=== PATIENT | female | born 1945 | race Caucasian/White ===

== ENCOUNTER → 2023-05-06 13:14 | Outpatient (REF) | payer OTHER, SELFPAY | LOC: WDC 13:14 | PROVIDERS: ATTENDING PHYSICIAN Internal Medicine Hematology & Oncology; FAMILY PHYSICIAN Emergency Medicine | DX: Z12.31 Encounter for screening mammogram for malignant neoplasm of breast (principal) | CPT/HCPCS: 77063; 77067 ==

== ENCOUNTER 2023-06-29 12:31 | Emergency (ER) | payer OTHER, SELFPAY ==
[2023-06-29 12:43] VITALS: BP 157/92
--- NOTE | 2023-06-29 13:54 | ED.GENMED ---
History of Present Illness
General
Chief Complaint: Chest Pain
Time Seen by Provider: 06/29/23 13:44
Travel History
Have you had any contact with someone who has COVID-19?: No
Do you have any symptoms of coronavirus? Fever > 100 degrees, chills, cough, shortness of breath, sore throat, loss of taste or smell, muscle aches, or headache?: No
History of Present Illness
History of Present Illness:
Patient is a 77-year-old female with past medical history of multiple sclerosis, vertigo, COPD, history of prior tobacco use, atrial fibrillation on Eliquis, history of DVT, hypertension, osteopenia, DDD, hearing impairment, hyperlipidemia, GERD,
diverticulosis, history of breast and skin cancer, and history of constipation, here today for evaluation of chest pain that began approximately 3 days ago associated with frequent burping. Pain is described as a burning sensation. She also
endorses nausea. No fevers. No cough. No vomiting. No abdominal pain or diarrhea. No lower extremity pain or swelling. Patient was seen by her primary care provider and directed to the emergency department for further testing and evaluation.
Past History
Past History
ED Past Medical History: Arrthythmia (Atrial fibrillation), Cancer (Breast), COPD, GERD (PUD, gastritis), HTN, Hypercholesterolemia and Other (MS, CKD)
ED Past Surgical History: Orthopedic and Other
Patient has exhibited threatening behavior?: No
Social History
Tobacco: Non-smoker (Breast cancer diagnosed in February 2015 treated with lumpectomy and radiation)
Alcohol: None
Drug: None
Personal: Single
Living: alone
Employment: Employed (lawn care technician)
Family History
Family History: Other (n/c)
Review of Systems
Review of Systems
All Other Systems: ROS reviewed and negative except as documented in HPI and ROS
Phy Exam
Physical Exam
Physical Exam:
GENERAL: Alert , in no apparent distress
EYE: pupils equal and reactive
NECK: Supple, no significant adenopathy.
ENT: o/p clr, mmm.
CARDIAC: Regular rate and rhythm .
LUNGS: Clear breath sounds bilaterally, no acute respiratory distress, no wheezes/rales/rhonchi
ABDOMEN: Soft, without focal tenderness, no r/g, no cvat
NEUROLOGICAL: Alert and oriented, no focal neuro deficits
SKIN: Warm and dry, skin intact.
MUSCULOSKELETAL: No edema, well perfused.
PSYCH: Normal and appropriate interaction.
Course
Orders/Labs/Results
Orders:
Orders
06/29/23 12:33
Electrocardiogram (*1) Urgent
Reason for Study: Chest Pain
EKG- Treatment ONCE
06/29/23 13:52
Famotidine [Pepcid] 20 mg PO NOW STA
Mag Hydrox/Al Hydrox/Simeth [Maalox] 30 ml PO NOW STA
CR Chest - 2 Views Urgent
Comment:
Reason For Exam: chest pain
06/29/23 14:06
Complete Blood Count/With Diff Urgent
Comprehensive Metabolic Panel Urgent
Troponin I Urgent
06/29/23 17:08
ECG [Electrocardiogram (*1)] Urgent
Reason for Study: Chest Pain
06/29/23 17:09
EKG- Treatment ONCE
06/29/23 17:10
Troponin I Urgent
Abnormal Lab Results
06/29/23
14:06
WBC 12.3 H 10^3/uL
(4.8-10.8)
RDW 15.8 H %
(11.5-14.5)
Absolute Neuts (auto) 8.1 H 10^3/uL
(1.4-6.5)
Absolute Monos (auto) 1.2 H 10^3/uL
(0.1-0.6)
Monocytes % 9.7 H %
(1.7-9.3)
BUN 26 H mg/dl
(7-17)
Glucose 124 H mg/dl
(70-99)
Calcium 12.4 H mg/dl
(8.4-10.2)
Albumin 5.1 H g/dl
(3.5-5.0)
06/29/23 14:06
06/29/23 14:06
Vital Signs
Pulse: 113
Initial and Last Documented VS:
Initial Vital Signs
Temp Pulse Resp BP Pulse Ox
98.2 F 116 22 157/92 97
06/29/23 12:43 06/29/23 12:43 06/29/23 12:43 06/29/23 12:43 06/29/23 12:43
Last Documented Vital Signs
Temp Pulse Resp BP Pulse Ox
98.2 F 113 20 130/76 97
06/29/23 12:43 06/29/23 17:04 06/29/23 16:00 06/29/23 16:00 06/29/23 12:43
MDM/Problems Addressed
Differential Diagnosis Includes:
Patient is a 77-year-old female with past medical history of multiple sclerosis, vertigo, COPD, history of prior tobacco use, atrial fibrillation on Eliquis, history of DVT, hypertension, osteopenia, DDD, hearing impairment, hyperlipidemia, GERD,
diverticulosis, history of breast and skin cancer, and history of constipation, here today for evaluation of chest pain. Overall, patient appears well. She is mildly hypertensive. Physical examination described above. Will place on cardiac
monitor. Will obtain screening labs, EKG, and chest x-ray.
06/29/2023 17:00: Screening labs reveal mild leukocytosis with a WBC count of 12.3. BUN 26 with a normal creatinine of 1.0. Glucose 124. Calcium 12.4 (increased from January 2023 of 9.2). Troponin negative. EKG reveals sinus tachycardia with
occasional PVCs. There appears to be slight ST depression noted laterally in V4-V6 without ST elevation. At this time, discussed plan with patient. Recommended admission to the hospital given reported chest pain and elevated heart score. Patient
would prefer to be discharged and follow-up with her chainstitch pants outseamer as an outpatient. We discussed risks in full detail. We will obtain a second troponin at this time and closely monitor and reassess. The patient is still mildly cardiac here to the
low 110s. Will repeat heart rate.
ED Attending Note
-
Portions of this chart may have been created with voice recognition software.� Occasional wrong word or��sound alike� substitutions may have occurred due to the inherent limitations of voice recognition software.
Discharge Plan
Departure
Patient Disposition: Home (Routine Discharge)
Date of Disposition: 06/29/23
Time of Disposition: 17:52
Patient with high blood pressure during this ER visit?: Yes
Condition: Fair
Covid-19: Not Applicable
Discharge Problem:
Chest pain, Hypercalcemia
Instructions: Chest Pain DCA Follow Up
Prescriptions:
No Action
meclizine 25 MG tablet
25 mg PO TIDPRN PRN (Reason: vertigo)
albuterol sulfate 1 PUFF HFA aerosol inhaler
2 puff inhalation R Q4HPRN PRN (Reason: sob/wheezing)
amantadine HCl 100 MG capsule
100 mg PO BID
atorvastatin 10 MG tablet
10 mg PO DAILY Qty: 30 0RF
Rx Instructions:
NEW MED
metoprolol succinate 25 MG tablet extended release 24 hr
25 mg PO BID Qty: 30 0RF
lisinopril 20 mg Tablet
20 mg PO DAILY
amlodipine 2.5 mg Tablet
2.5 mg PO DAILY
tizanidine 2 MG tablet
4 mg PO TID
Fish Oil
1 dose PO DAILY
nitrofurantoin monohyd/m-cryst [Macrobid] 100 mg capsule
100 mg PO BID Qty: 10 0RF
tramadol 50 mg tablet
50 mg PO Q8H PRN (Reason: Pain) Qty: 20 0RF
Eliquis 5 MG tablet
5 mg PO BID
Rx Instructions:
NEW DOSE
omeprazole 40 MG capsule,delayed release(DR/EC)
40 mg PO DAILY Qty: 30 0RF
Referrals:
Nanette He MD [Family Provider] - Follow up in 2-3 days
Reji Palmer MD [Active] - Follow up in 2-3 days
Activity Restrictions/Additional Instructions:
You were seen today for evaluation of chest pain.
Your workup reveals an elevated white blood cell count to 12.3, elevated BUN to 26, elevated glucose to 124, and elevated calcium to 12.4.
We recommended admission to the hospital but you declined.
Please contact your family doctor and chainstitch pants outseamer and be evaluated within the next 2 to 3 days for close reevaluation.
Return for any new, or concerning symptoms.
We recommend repeating your blood work as an outpatient with your family doctor.
Interventions
Interventions:
*Risk Screen - Suicide Last Done: 06/29/23 12:43
*General Assessment Last Done: 06/29/23 12:43
*Neglect/Abuse Screening Last Done: 06/29/23 12:43
ED- Fall Risk Assessment Last Done: 06/29/23 14:59
ED- Cardiac Assessment Last Done: 06/29/23 14:59
Discharge Date and Time
Print Language: [id number]
[2023-06-29 14:13] LABS: % Basophils 0.7 % (0-2); % Eosinophils 1.1 % (0-6); % Immature Granulocytes 0.2 % (0-0.5); % Monocytes 9.7 % (1.7-9.3); % Neutrophils 65.3 % (42.2-75.2); Absolute Basophils 0.1 10^3/uL (0-0.2); Absolute Eosinophils 0.1 10^3/uL (0-0.7); Absolute Lymphocytes 2.8 10^3/uL (1.2-3.4); Absolute Monocytes 1.2 10^3/uL (0.1-0.6); Absolute Neutrophils 8.1 10^3/uL (1.4-6.5); Hematocrit 41.7 % (37.0-47.0); Hemoglobin 13.8 g/dL (12.0-16.0); Mean Corp Hgb Conc. 33.1 g/dL (33.0-37.0); Mean Corpuscular Volume 84.6 fL (81.0-99.0); Mean Platelet Volume 9.8 fL (7.4-10.4); Nucleated Red Blood Cells % 0 %; Platelet Count 342 10^3/uL (130-400); Red Blood Cell Count 4.93 10^6/uL (4.20-5.40); Red Cell Dist. Width 15.8 % (11.5-14.5); White Blood Cell Count 12.3 10^3/uL (4.8-10.8)
[2023-06-29] MEDS: MAALOX 30 ML PO (14:21)
[2023-06-29] MEDS: PEPCID 20 MG PO (14:21)
[2023-06-29 14:25] LABS: ALT (SGPT) 25 U/L (0-35); AST (SGOT) 23 U/L (14-36); Albumin 5.1 g/dl (3.5-5.0); Alkaline Phosphatase 109 U/L (38-126); Blood Urea Nitrogen 26 mg/dl (7-17); Calcium 12.4 mg/dl (8.4-10.2); Carbon Dioxide 23 mmol/L (22-30); Chloride 105 mmol/L (98-107); Glucose 124 mg/dl (70-99); Potassium 4.5 mmol/L (3.5-5.1); Sodium 138 mmol/L (135-145); Total Bilirubin 0.7 mg/dl (0.2-1.3); eGFR 57.66
[2023-06-29 14:36] LABS: Troponin I < 0.012 ng/ml
[2023-06-29 15:06] VITALS: BP 145/84
[2023-06-29 16:00] VITALS: BP 130/76
[2023-06-29 17:00] VITALS: BP 137/79
[2023-06-29 17:46] LABS: Troponin I < 0.012 ng/ml
== END 2023-06-29 18:29 | disposition home or self-care (01) ==
LOC: EMR 12:31
PROVIDERS: Emergency Medicine; Physician Assistant; EMERGENCY PHYSICIAN Student in an Organized Health Care Education/Training Program; FAMILY PHYSICIAN Emergency Medicine
DX: R07.89 Other chest pain (principal); E83.52 Hypercalcemia; G35 Multiple sclerosis; J44.9 Chronic obstructive pulmonary disease, unspecified; I48.91 Unspecified atrial fibrillation; K21.9 Gastro-esophageal reflux disease without esophagitis; I10 Essential (primary) hypertension; E78.00 Pure hypercholesterolemia, unspecified; I12.9 Hypertensive chronic kidney disease with stage 1 through stage 4 chronic kidney disease, or unspecified chronic kidney disease; N18.9 Chronic kidney disease, unspecified; Z87.891 Personal history of nicotine dependence; Z87.11 Personal history of peptic ulcer disease
CPT/HCPCS: 99283; 71046; 80053; 84484; 85025; 93005

== ENCOUNTER 2023-07-01 16:46 | Inpatient (IN) | payer OTHER, SELFPAY ==
[2023-07-01] VITALS (24 sets, daily range): BP systolic 51–117; BP diastolic 26–92; BMI 29.4
[2023-07-01] MEDS: NSS 1000 IV ×3 (12:47→21:55)
--- NOTE | 2023-07-01 13:10 | EDRN ---
Received patient on stretcher. Patient was sent from her Instructional Technology Teacher office for low blood. Patient stated that she has been feeling generally weak since Wednesday. Patient stated that she was here Wednesday with 'heartburn' and weakness. Patient stated
that she has had a 20 lbs unintentional weight loss. Stated that she does feel dizzy at times. Denies any chest pain or 'heartburn'.
--- NOTE | 2023-07-01 13:13 | ED.GENMED ---
History of Present Illness
General
Chief Complaint: Blood Pressure Problem
Source: patient
Exam Limitations: none
Time Seen by Provider: 07/01/23 12:46
Nursing documentation reviewed up to this point in time: agreed with
Travel History
Have you had any contact with someone who has COVID-19?: No
Do you have any symptoms of coronavirus? Fever > 100 degrees, chills, cough, shortness of breath, sore throat, loss of taste or smell, muscle aches, or headache?: No
History of Present Illness
History of Present Illness:
Patient is a 77-year-old female with past medical history of multiple sclerosis and COPD who was sent directly from cardiology outpatient appointment today for low blood pressure. Patient complains of generalized weakness and occasional
lightheadedness but denies fever, chills, and increased cough. Patient was recently evaluated in the emergency department for frequent heartburn. Patient reports she has had heartburn on a daily basis, lasting for hours, over the last 4 to 5 days.
However, she denies sweating, nausea and shortness of breath. In addition, patient reports a 20 pound weight loss over the last 2 months that is unintentional. She denies abnormal bowel movements as well as black and bloody stool. Patient has no
other complaints. Patient reports her blood pressure generally runs ' normal'. Patient reports that her medications were recently changed but is unable to tell me what changes were made. On medication list, patient takes 2.5 mg of amlodipine, 20
mg of lisinopril, and 25 mg of metoprolol twice a day. Patient denies vomiting and diarrhea. She reports she eats and drinks but not as well as she should.
Past History
Past History
ED Past Medical History: Arrthythmia (Atrial fibrillation), Cancer (Breast, 'mass found near ureter'), COPD, GERD (PUD, gastritis), HTN, Hypercholesterolemia and Other (MS, CKD)
ED Past Surgical History: Orthopedic and Other
Patient has exhibited threatening behavior?: No
Social History
Tobacco: Former smoker (Breast cancer diagnosed in February 2015 treated with lumpectomy and radiation)
Alcohol: None
Drug: None
Personal: Single
Living: alone
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
Family History
Family History: Other (n/c)
Review of Systems
Review of Systems
Allergies reviewed?: Yes
All Other Systems: ROS reviewed and negative except as documented in HPI and ROS
Constitutional: Reports weight loss and fatigue
EENT: Reports no symptoms
Respiratory: Reports no symptoms
Cardiac: Reports chest pain ('Heartburn')
ABD/GI: Reports no symptoms
: Reports no symptoms
Musculoskeletal: Reports no symptoms
Skin: Reports no symptoms
Neurological: Reports no symptoms
Endocrine: Reports no symptoms
Hematologic/Lymphatic: Reports no symptoms
Psychiatric: Reports no symptoms
Phy Exam
Physical Exam
Physical Exam:
Physical Exam
General: no apparent distress, not acutely ill. Fully alert, awake and conversational
Neck: supple. no meningeal signs. normal psoterior pharynx
Heart: s1/s2 regular rate and rhythm, no murmur. equal radial pulses.
Lungs: no acute respiratory distress. clear bilaterally
Abdomen: normal bowel sounds. not tender. no CVAT
Neuro: alert and oriented. no focal neurological deficits
Skin: no rash
Psychiatric: well kept. interactive and cooperative
Extremities: no edema. no calf tenderness. negative homans. good distal pulses
Course
Orders/Labs/Results
Orders:
Orders
07/01/23 12:18
Electrocardiogram (*1) Urgent
Reason for Study: Abdominal Pain
EKG- Treatment ONCE
07/01/23 12:46
0.9% Sodium Chloride 1000 ml [Nss] 1,000 ml IV BOLUS
07/01/23 12:48
CMP [Comprehensive Metabolic Panel] Urgent
Complete Blood Count/With Diff Urgent
TSH Urgent
Comment: ADD ON
Troponin I Urgent
07/01/23 13:04
Add On- LAB Urgent
Tests Added?: TSH
Urinalysis Reflex To Culture Urgent
07/01/23 13:05
CR Chest - 2 Views Urgent
Comment:
Reason For Exam: weight loss
07/01/23 13:24
Lactic Acid Urgent
07/01/23 13:59
0.9% Sodium Chloride 1000 ml [Nss] 1,000 ml IV BOLUS
Abnormal Lab Results
07/01/23
12:48
Hgb 11.9 L g/dL
(12.0-16.0)
Hct 36.6 L %
(37.0-47.0)
MCHC 32.5 L g/dL
(33.0-37.0)
RDW 15.8 H %
(11.5-14.5)
MPV 10.5 H fL
(7.4-10.4)
Absolute Neuts (auto) 6.9 H 10^3/uL
(1.4-6.5)
Absolute Monos (auto) 1.1 H 10^3/uL
(0.1-0.6)
Monocytes % 10.1 H %
(1.7-9.3)
Sodium 133 L mmol/L
(135-145)
BUN 44 H mg/dl
(7-17)
Creatinine 2.5 H mg/dL
(0.6-1.0)
Calcium 11.1 H mg/dl
(8.4-10.2)
07/01/23 12:48
07/01/23 12:48
Vital Signs
Initial and Last Documented VS:
Initial Vital Signs
Temp Pulse Resp BP Pulse Ox
97.8 F 76 18 80/46 97
07/01/23 12:15 07/01/23 12:15 07/01/23 12:15 07/01/23 12:15 07/01/23 12:15
Last Documented Vital Signs
Temp Pulse Resp BP Pulse Ox
97.8 F 62 20 85/55 97
07/01/23 12:15 07/01/23 13:46 07/01/23 13:46 07/01/23 13:46 07/01/23 12:50
MDM/Problems Addressed
Differential Diagnosis Includes:
Medication related hypotension, acute anemia, acute dehydration, sepsis
MDM/Problems Addressed:
Patient presents with acute hypotension and subacute weight loss
Chronic conditions affecting care: HTN
Acute Exacerbation and/or Progression of Chronic Illness:
Patient may be acutely hypotensive due to antihypertensive medication
Acute Exacerbation and/or Progression of Chronic Illness: HTN
*Radiology
Radiology exam reviewed: preliminary read by ED provider (Chest x-ray read by me. No acute disease) and radiology read reviewed
*Pulse Oximetry
Patient hypoxic: no
*EKG
Interpreted by ED Provider?: Yes
Interpretation: abnormal
Comparison EKG: no changes
Rate: normal
Rhythm: sinus
Neversink: left axis deviation
Interval: normal interval
QRS Pattern: left vent hypertrophy
Ischemia: non-specific ST changes
*Assistant Manager Of Operations Interpretation
Rate: normal
Interpretation: normal
Rhythm: sinus
*Critical Care Note
Total Time (30-74mins, 75-104mins- exclusive of procedures): Not Applicable
Data Reviewed
Review of Other/Old Records Reveals: Progress Notes (Urology progress note reviewed from January 2023 when patient was diagnosed with transitional bladder cancer)
Source: patient
Patient Management
Discussion with other providers: Hospitalist and Other (Cardiology)
Escalation/DeEscalation of care consider admission/obs:
Due to acute renal failure, acute anemia, and transient hypotension, decision made to admit the patient.
ED Attending Note
-
Portions of this chart may have been created with voice recognition software.� Occasional wrong word or��sound alike� substitutions may have occurred due to the inherent limitations of voice recognition software.
Discharge Plan
Departure
Patient Disposition: Admit
Date of Disposition: 07/01/23
Time of Disposition: 15:19
Admit to: Telemetry
Presentation/result/management discussed w/ accepting MD/DO: Hospitalist
Patient with high blood pressure during this ER visit?: No
Condition: Good
Discharge Problem:
Acute hypotension, Acute dehydration, Acute renal failure, Unexplained weight loss, Acute anemia
Prescriptions:
No Action
amantadine HCl 100 MG capsule
100 mg PO BID
atorvastatin 10 MG tablet
10 mg PO DAILY Qty: 30 0RF
Rx Instructions:
NEW MED
metoprolol succinate 25 MG tablet extended release 24 hr
25 mg PO BID Qty: 30 0RF
lisinopril 20 mg Tablet
20 mg PO DAILY
amlodipine 2.5 mg Tablet
2.5 mg PO DAILY
tizanidine 2 MG tablet
4 mg PO TID
Eliquis 5 MG tablet
5 mg PO BID
Rx Instructions:
NEW DOSE
omeprazole 40 MG capsule,delayed release(DR/EC)
40 mg PO DAILY Qty: 30 0RF
Referrals:
Nanette He MD [Family Provider] -
Interventions
Interventions:
*Risk Screen - Suicide Last Done: 07/01/23 12:15
*General Assessment Last Done: 07/01/23 12:15
*Neglect/Abuse Screening Last Done: 07/01/23 12:15
ED- Fall Risk Assessment Last Done: 07/01/23 12:37
*ED COVID-19 Vaccine History Last Done: 07/01/23 12:15
ED- Cardiac Assessment Last Done: 07/01/23 12:37
ED- Neurological Assessment Last Done: 07/01/23 12:37
ED- Pulmonary Assessment Last Done: 07/01/23 12:37
Discharge Date and Time
Print Language: [place]
[2023-07-01 13:32] LABS: % Basophils 0.6 % (0-2); % Eosinophils 1.5 % (0-6); % Immature Granulocytes 0.4 % (0-0.5); % Lymphocytes 23.8 % (20.5-51.1); % Monocytes 10.1 % (1.7-9.3); % Neutrophils 63.6 % (42.2-75.2); Absolute Basophils 0.1 10^3/uL (0-0.2); Absolute Eosinophils 0.2 10^3/uL (0-0.7); Absolute Lymphocytes 2.6 10^3/uL (1.2-3.4); Absolute Monocytes 1.1 10^3/uL (0.1-0.6); Absolute Neutrophils 6.9 10^3/uL (1.4-6.5); Hematocrit 36.6 % (37.0-47.0); Hemoglobin 11.9 g/dL (12.0-16.0); Mean Corp Hgb Conc. 32.5 g/dL (33.0-37.0); Mean Corpuscular Hgb 27.8 pg (27.0-31.0); Mean Corpuscular Volume 85.5 fL (81.0-99.0); Mean Platelet Volume 10.5 fL (7.4-10.4); Nucleated Red Blood Cells % 0 %; Platelet Count 281 10^3/uL (130-400); Red Blood Cell Count 4.28 10^6/uL (4.20-5.40); Red Cell Dist. Width 15.8 % (11.5-14.5); White Blood Cell Count 10.8 10^3/uL (4.8-10.8)
[2023-07-01 13:43] LABS: Lactic Acid 1.3 mmol/L (0.7-2.0)
[2023-07-01 13:45] LABS: ALT (SGPT) 20 U/L (0-35); AST (SGOT) 23 U/L (14-36); Albumin 4.3 g/dl (3.5-5.0); Alkaline Phosphatase 96 U/L (38-126); Blood Urea Nitrogen 44 mg/dl (7-17); Calcium 11.1 mg/dl (8.4-10.2); Carbon Dioxide 23 mmol/L (22-30); Chloride 101 mmol/L (98-107); Estimated Creatinine Clearance 20 ml/min; Glucose 96 mg/dl (70-99); Potassium 4.5 mmol/L (3.5-5.1); Sodium 133 mmol/L (135-145); Total Bilirubin 0.7 mg/dl (0.2-1.3); Total Protein 6.8 g/dl (6.3-8.2)
[2023-07-01 14:12] LABS: Troponin I < 0.012 ng/ml
[2023-07-01 14:15] LABS: TSH 2.66 uIU/ml (0.47-4.68)
--- NOTE | 2023-07-01 15:20 | W.PN.CARDCBS ---
Addendum entered and electronically signed by Dada Moscoso MD 07/01/23 16:19:
I saw and examined the patient.
The Voice Pathologist's note was reviewed and I agree with the note.
Comment:
GEN: No distress, awake, Ox3
HEENT: supple, anicteric, mmm
LUNGS: CTA, no wheezes/rales
CV: Reg, S1/S2, 1/6 syst LSB, no gallop
ABD: soft, BS+, NT/ND
EXT: No edema
NEURO: Gross non-focal
SKIN: No rash
Plan:
She presents with several trips to the emergency room with fatigue, malaise, and epigastric discomfort. Creatinine today was elevated at 2.5 with hypotension today at [facility] office.
Cardiac troponin is negative and she remains in sinus rhythm.
Recommend hold Norvasc, lisinopril, and Toprol.
Gentle hydration and follow creatinine.
Consider imaging to rule out obstruction with history of bladder malignancy and weight loss.
Will check echo. Previous echo has a preserved ejection fraction with no significant valve disease.
Original Note:
Today's Communication / Plan
-
hold antiHTN meds
follow hgb, heme test
follow Cr
consider imaging to r/o urinary obstruction, as well as malignancy with unintentional weight loss
IVF
check echo
Impression / Plan
-
Primary Cashier General: Dr. Moscoso
Assessment:
Presentation with symptomatic hypotension and orthostasis
MANDI
Throat burning
Anemia, drop in hgb of 2 grams in 48 hours
Unintentional 20 pound weight loss
PAF
Chronic OAC with eliquis
HTN
HLD
History of breast cancer s/p lumpectomy and XRT 2016
COPD
GERD
Multiple sclerosis
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
History of L hydronephrosis secondary to tumor obstruction with ureteral stent placement at time of above procedure
Hyponatremia
ECHO 02/2021: EF 65%, no significant valvular disease, prominent anterior fat pad, trivial pericardial effusion
Plan:
-Patient is a 77-year-old female who presented to ER after referral from our office due to symptomatic hypotension. She reports she has been feeling weak recently. In January she had transurethral resection of bladder mass felt to be
transitional cell carcinoma, low-grade, with mass having caused left hydronephrosis due to obstruction. She had a ureteral stent placed at the time of the procedure. She reports Tuesday 06/27 she was scheduled for repeat ultrasound and blood work,
however had to cancel due to feeling poorly. She states starting on Wednesday she had episodes of throat burning. She feels as though Maalox improved to this. She initially stated no specific correlation with eating, however then stated it mostly
occurs after eating. She has also had unintentional 20 pound weight loss. She was seen in the ER on Wednesday with those symptoms and was noted to be hypotensive. She was encouraged to stay, however left the ER. She saw cardiology in office today
and was noted to be hypotensive and referred back to ER. While in ER transitioning from wheelchair to stretcher BP dropped temporarily into 50s systolic. slowly improving. Today Cr up to 2.5 and hgb down 2 grams from 06/28. She is on eliquis 5mg BID.
She reports occasional dark stools however nothing dark or bloody that she noticed recently. Trop negative x1. BP responding to IVF in ER. Does not appear overtly septic.
-heme test stools. follow hgb, 12/31 on 06/30 however was 13.8 on 06/28. may need to hold eliquis
-continue IVF
-holding antiHTN meds (norvasc, lisinopril, toprol)
-trop negative x1, were also negative on 06/28. no overt ischemia noted by EKG. consider GI assessment of throat burning particularly if results heme positive
-check echo
-may need imaging to r/o obstruction
-concerning story with history of cancer and unintentional weight loss
-d/w ER nurse
Progress Note - Cashier General
Subjective
Date of Service: July 01, 2023
denies current chest/throat discomfort, SOB, lightheadedness
Objective
Labs:
07/01/23 12:48
07/01/23 12:48
Labs
Hgb 11.9 g/dL (12.0-16.0) L 07/01/23 12:48
Hct 36.6 % (37.0-47.0) L 07/01/23 12:48
Plt Count 281 10^3/uL (130-400) 07/01/23 12:48
Sodium 133 mmol/L (135-145) L 07/01/23 12:48
Potassium 4.5 mmol/L (3.5-5.1) 07/01/23 12:48
BUN 44 mg/dl (7-17) H 07/01/23 12:48
Creatinine 2.5 mg/dL (0.6-1.0) H 07/01/23 12:48
Glucose 96 mg/dl (70-99) 07/01/23 12:48
Troponins
07/01/23
12:48
Troponin I < 0.012
Vital Signs and I&O:
Vital Signs
Temp Pulse Resp BP Pulse Ox
97.8 F 62 20 85/55 97
07/01/23 12:15 07/01/23 13:46 07/01/23 13:46 07/01/23 13:46 07/01/23 12:50
Vital Signs
Temp Pulse Resp BP Pulse Ox
97.8 F 62 20 85/55 97
07/01/23 12:15 07/01/23 13:46 07/01/23 13:46 07/01/23 13:46 07/01/23 12:50
Physical Exam
Physical Exam
GEN: No distress, awake, alert, oriented x3. pale appearing
HEENT: supple, anicteric, mmm, eomi
LUNGS: CTA B/L, no wheezes/rales
CV: Reg, S1/S2, no murmur
ABD: soft, BS+, NT/ND
EXT: No cyanosis, clubbing, edema
NEURO: Gross non-focal
SKIN: Warm, pink, dry. No rash
--- NOTE | 2023-07-01 16:01 | HPS.HSE ---
Family Physician
-
Family Physician: Nanette He MD
Chief Complaint
-
Generalized weakness and referral by cardiology for hypotension
History of Present Illness
Pleasant 77-year-old female with history of stage I breast cancer, COPD and hypertension sent from office admin office as she was having regular visit and follow-up and they noticed she was hypotensive, admitted feeling having indigestion and
heartburn over the last couple of day and having nausea but no vomiting, denies any fever or chill or cough or congestion or any chest pain or urinary or GI symptoms, no headache or vision change.
Admit she had not taken her medication regularly as she takes amlodipine and lisinopril.
Look like initially in the ER her pressure was 70s over 50s, got some fluid when I was in the room she was more energetic and alert no complaint and her pressure was like 112/59.
Workup in ER showed acute kidney injury. Had a creatinine and BMP done on June 29, 2023 and was normal then and today's creatinine is 2.5 she looks dry and dehydrated.
Medical History
Past Medical History
Past Medical History: Reports Other
Additional Past Medical History:
Past medical history Reviewed:
Dyslipidemia
Multiple sclerosis
Pretension
Peptic ulcer disease
Diverticulosis
Diverticulosis
Hypertension
GERD and gastritis
Hiatal hernia
Left breast invasive ductal carcinoma breast stage Ia
Osteopenia
Mild cognitive impairment
A-fib
Surgical history:
Left breast biopsy and lumpectomy
Right rotator cuff repair
Right arm biopsy
Social history: No smoking or alcohol use. Lives alone independently
Family history: Reviewed and noncontributory
Past Surgical History: Reports Other
Social History
Unable to obtain full social history at this time due to: Other
Family History
Family History: Other
Allergies / Home Medications
Allergies reflects when Allergies were last updated in [facility].
Home Medications with original date entered in [facility]
Allergy/Medication List:
Allergies
Allergy/AdvReac Type Severity Reaction Status Date / Time
tetracycline [Tetracycline] Allergy Severe Hives, Verified 06/29/23 12:47
tachycardia
Home Medications
omeprazole 40 mg capsule,delayed release 40 mg PO DAILY #30 caps 10/19/19
amantadine HCl 100 mg capsule 100 mg PO BID Neurological Condition 03/13/21
atorvastatin 10 mg tablet 10 mg PO DAILY #30 tabs 03/15/21
metoprolol succinate 25 mg tablet,extended release 24 hr 25 mg PO BID #30 tabs 03/15/21
amlodipine 2.5 mg tablet 2.5 mg PO DAILY Blood pressure 04/27/22
lisinopril 20 mg tablet 20 mg PO DAILY Blood Pressure 04/27/22
tizanidine 2 mg tablet 4 mg PO TID Muscle spasms 04/27/22
apixaban 5 mg tablet (Eliquis) 5 mg PO BID Blood Clot Prevention/Tx 02/06/23
If medication reconciliation has not been performed, why?: Other
Review of Systems
-
A 12 point ROS was completed and negative except as noted: Yes
Physical Exam
Vital Signs
Vital Signs
Temp Pulse Resp BP Pulse Ox
97.8 F 62 20 85/55 97
07/01/23 12:15 07/01/23 13:46 07/01/23 13:46 07/01/23 13:46 07/01/23 12:50
Physical exam:
General: Awake, alert and oriented x3, not in distress and holds appropriate conversation.
HEENT: No active discharge, ecchymosis or bruising, dry lips, tongue and mucous membrane.
Eyes: No discharge or red conjunctiva, no nystagmus, pupils are reactive and equal
Neck:Supple, no JVD no bruit no goiter.
Respiratory: Normal AP contour and diameter, normal chest wall movement, normal respiratory effort, no respiratory distress,
Lungs: Good air entry bilaterally, no wheezing or rhonchi, no rales or crackles
Heart: S1, S2 regular, normal rate, no added sound.
Gastrointestinal: Positive bowel sounds, soft, nontender, no guarding or rigidity or organomegaly
Musculoskeletal: , no chest wall abnormality or tenderness. All joints and extremities have good range of motion, no muscle tenderness or any joint swelling or tenderness.
Extremities: No pitting edema, good peripheral pulses, good range of motion
Skin: Warm and dry, no ulceration, normal color.
Neurological: Awake, alert and oriented x3, , speech clear and comprehensive, good muscle tone, normal sensory and motor function
Psychiatric: Normal mood, normal thought and judgment, normal affect,
Physical Exam
General: Other
Laboratory Results
-
07/01/23 12:48
07/01/23 12:48
Laboratory Results
Lactic Acid 1.3 mmol/L (0.7-2.0) 07/01/23 13:24
Total Bilirubin 0.7 mg/dl (0.2-1.3) 07/01/23 12:48
AST 23 U/L (14-36) 07/01/23 12:48
ALT 20 U/L (0-35) 07/01/23 12:48
Alkaline Phosphatase 96 U/L (38-126) 07/01/23 12:48
Troponin I < 0.012 ng/ml 07/01/23 12:48
CXR:There is mild cardiomegaly but no evidence of decompensation.
EKG:
Vent. Rate : 071 BPM Atrial Rate : 071 BPM
P-R Int : 144 ms QRS Dur : 086 ms
QT Int : 410 ms P-R-T Axes : -03 -26 -22 degrees
QTc Int : 445 ms
NORMAL SINUS RHYTHM
MODERATE VOLTAGE CRITERIA FOR LVH, MAY BE NORMAL VARIANT ( R in aVL , Tristan
product )
Slow progression of the arm anterior leads,
Data Reviewed
-
Diagnostic Radiology: Image Personally Visualized and interpreted and Discussed with Patient
Medical Tests (Nuc Med, Echo, EKG etc): Image Personally Visualized and interpreted and Discussed with Patient
Lab Data: Labs Reviewed by me and Discussed with Patient
Old Records: Reviewed
Impression/Plan
-
IMPRESSION:
77-year-old female with history of hypertension, COPD, stage I breast cancers, sent to the hospital by office admin for evaluation of the hypotension.
Patient basically asymptomatic.
Admit nausea for the last couple day but no vomiting some indigestion, cleared by office admin from the office.
Looks dry and dehydrated and responded to IV fluid.
Generalized weakness
Acute kidney injury: Likely secondary to hypotension, dehydration and taking blood pressure medications specially lisinopril
Dehydration
Hypercalcemia, calcium 11.1 likely secondary to dehydration, other causes need to be considered if not improving with IV hydration
Hypertension
History of A-fib
Hypertension
COPD
History of left breast invasive ductal carcinoma stage I diagnosed many years ago
PLAN:
IV fluid aggressively
ER order CT abdomen and pelvis will follow the result
Get UA while chest x-ray is clear
Hold lisinopril amlodipine
Monitor vital sign
Recheck lab
Avoid nephrotoxin
If renal function is not improving then we will consider nephrology consult, admit CT abdomen and pelvis already been ordered
Will continue metoprolol with holding parameters
Continue Eliquis
Monitor vital sign
All discussed with the patient in detail and expressed understanding
CODE STATUS full code
DVT prophylaxis Eliquis
--- NOTE | 2023-07-01 18:08 | EDRN ---
Patient taken to room 317-1 on monitor on stretcher by technical education teacher.
--- NOTE | 2023-07-01 18:47 | PTCARENOTE ---
pt admitted from ED AOx3 denies pain. Lung sounds diminished b/l on RA. cont b/b round obese abd soft nt. skin CDI +pp b/l. CB in reach
[2023-07-01] MEDS: TOPROL XL 25 MG PO (20:34)
[2023-07-01] MEDS: ELIQUIS 5 MG PO (20:35)
[2023-07-01] MEDS: SYMMETREL 100 MG PO (20:35)
[2023-07-01] MEDS: ZANAFLEX 4 MG PO (21:55)
[2023-07-01 22:32] LABS: Urine Albumin Negative (Neg - Trace); Urine Bilirubin Negative (Negative); Urine Character Clear (Clear); Urine Color Yellow; Urine Glucose Negative (Negative); Urine Ketone Negative (Negative); Urine Leukocyte Trace (Negative); Urine Nitrite Negative (Negative); Urine Occult Blood Negative (Negative); Urine Urobilinogen Negative (Neg - 1+)
[2023-07-01 22:57] LABS: Urine Squamous Cell 16-20 /LPF (Few)
[2023-07-01 22:58] LABS: Urine Bacteria Few (Negative)
[2023-07-01] MEDS: NSS IV (23:43)
[2023-07-01] MEDS: ProAmatine 5 MG PO (23:44)
[2023-07-02 03:35] VITALS: BP 111/48
[2023-07-02] MEDS: NSS 1000 IV (05:59)
[2023-07-02 06:44] LABS: % Basophils 0.8 % (0-2); % Eosinophils 2.9 % (0-6); % Immature Granulocytes 0.2 % (0-0.5); % Lymphocytes 28.2 % (20.5-51.1); % Neutrophils 56.9 % (42.2-75.2); Absolute Basophils 0.1 10^3/uL (0-0.2); Absolute Eosinophils 0.3 10^3/uL (0-0.7); Absolute Lymphocytes 2.4 10^3/uL (1.2-3.4); Absolute Monocytes 0.9 10^3/uL (0.1-0.6); Absolute Neutrophils 4.9 10^3/uL (1.4-6.5); Hematocrit 35.5 % (37.0-47.0); Hemoglobin 11.3 g/dL (12.0-16.0); Mean Corp Hgb Conc. 31.8 g/dL (33.0-37.0); Mean Corpuscular Hgb 27.8 pg (27.0-31.0); Mean Corpuscular Volume 87.4 fL (81.0-99.0); Mean Platelet Volume 10.4 fL (7.4-10.4); Nucleated Red Blood Cells % 0 %; Platelet Count 232 10^3/uL (130-400); Red Blood Cell Count 4.06 10^6/uL (4.20-5.40); Red Cell Dist. Width 15.6 % (11.5-14.5); White Blood Cell Count 8.6 10^3/uL (4.8-10.8)
[2023-07-02 07:19] LABS: Blood Urea Nitrogen 34 mg/dl (7-17); Calcium 9.8 mg/dl (8.4-10.2); Carbon Dioxide 20 mmol/L (22-30); Chloride 112 mmol/L (98-107); Estimated Creatinine Clearance 36 ml/min; Glucose 86 mg/dl (70-99); Potassium 4.4 mmol/L (3.5-5.1); Sodium 139 mmol/L (135-145); eGFR 38.51
[2023-07-02 07:56] VITALS: BP 116/46
[2023-07-02] MEDS: LR 1000 IV ×2 (08:24→19:48)
[2023-07-02] MEDS: ELIQUIS 5 MG PO ×2 (08:25→20:24)
[2023-07-02] MEDS: PROTONIX 40 MG PO (08:25)
[2023-07-02] MEDS: TOPROL XL 25 MG PO ×2 (08:25→20:24)
[2023-07-02] MEDS: SYMMETREL 100 MG PO ×2 (08:25→20:24)
[2023-07-02] MEDS: ZANAFLEX 4 MG PO ×3 (08:25→21:34)
[2023-07-02] MEDS: LIPITOR 10 MG PO (08:25)
--- NOTE | 2023-07-02 09:06 | W.PN.CARDCBS ---
Addendum entered and electronically signed by Solange Urbina DO 07/02/23 15:54:
I saw and examined the patient.
The Multimedia Authoring Specialist's note was reviewed and I agree with the note.
Comment: Patient was seen and examined. Offers no new complaints however states she is still not completely voiding and requiring straight caths. She sees Dr. Rosas as an outpatient. She denies chest pain or pressure, palpitations or abdominal
pain. No nausea or vomiting.
GEN: NAD
HEENT: mmm
LUNGS: CTA b/l, no wheezes/rales
CV: Reg, S1/S2, no murmur
EXT: No clubbing, cyanosis, or edema
NEURO: Gross non-focal
Plan:
-Presented from cardiology office due to hypotension and generalized weakness/nausea and indigestion found to have dehydration with acute renal insufficiency and new anemia
-Blood pressures have improved with IV hydration
-Outpatient antihypertensive medications including lisinopril and Norvasc have been held.
-Low-dose beta-coral has been continued with hold parameters
-Renal function is improving however patient has a history of urinary retention follows with Dr. Saleem and is apparently been requiring straight cath this admission
-New anemia with hemoglobin 06/29/2019 413.8 dropping to 11.9. Has not required transfusion.
-Follow hemoglobin
History of PAF on Eliquis
-Currently in sinus rhythm
-Monitor telemetry
-Outpatient Eliquis has been continued with close monitoring of hemoglobin
-Trop negative x1, were also negative on 06/28. No chest pain.
-Echo pending 07/01. Prior echo in 2021 with preserved EF and no significant valvular disease.
If echocardiogram is stable and she remains free of active cardiac concerns, we will sign off. Please recall if needed
Original Note:
Today's Communication / Plan
-
Follow BP, continue to hold lisinopril and amlodipine
Follow Hgb, consider GI eval
echo pending
Impression / Plan
-
Primary Insulation Professional: Dr. Moscoso
Assessment:
Presentation with symptomatic hypotension and orthostasis
MANDI
Throat burning
Anemia, drop in hgb of 2 grams in 48 hours
Unintentional 20 pound weight loss
Paroxysmal atrial fibrillation
Chronic OAC with Eliquis
HTN
HLD
h/o breast cancer s/p lumpectomy and XRT 2016
COPD
GERD
Multiple sclerosis
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
History of L hydronephrosis secondary to tumor obstruction with ureteral stent placement at time of above procedure
Hyponatremia
ECHO 02/2021: EF 65%, no significant valvular disease, prominent anterior fat pad, trivial pericardial effusion
Echo 07/02/2023: Study pending
Plan:
-Presented from cardiology office due to hypotension and drop in hgb.
-BPs improving with IVFs. Up to 116/46 this AM, however did have hypotension overnight with BP down to 85/47. Reports she was asymptomatic with this.
-Continue to hold Norvasc and lisinopril. Toprol continued with hold parameters, however may also need to hold Toprol if hypotension continues.
-Continue to follow hgb. Was 13.8 on 06/28, down to 11.3 07/01. If continues to drop, may need to hold Eliquis.
-Consider GI assessment of throat burning/anemia particularly if stool heme positive. Admits she has had dark bowel movements recently.
-Concerning story with history of cancer and unintentional weight loss
-Trop negative x1, were also negative on 06/28. No chest pain.
-Echo pending 07/01. Prior echo in 2021 with preserved EF and no significant valvular disease.
HPI: Patient is a 77-year-old female who presented to ER after referral from our office due to symptomatic hypotension. She reports she has been feeling weak recently. In January she had transurethral resection of bladder mass felt to be
transitional cell carcinoma, low-grade, with mass having caused left hydronephrosis due to obstruction. She had a ureteral stent placed at the time of the procedure. She reports Tuesday 06/27 she was scheduled for repeat ultrasound and blood work,
however had to cancel due to feeling poorly. She states starting on Wednesday she had episodes of throat burning. She feels as though Maalox improved to this. She initially stated no specific correlation with eating, however then stated it mostly
occurs after eating. She has also had unintentional 20 pound weight loss. She was seen in the ER on Wednesday with those symptoms and was noted to be hypotensive. She was encouraged to stay, however left the ER. She saw cardiology in office today
and was noted to be hypotensive and referred back to ER. While in ER transitioning from wheelchair to stretcher BP dropped temporarily into 50s systolic. slowly improving. Today Cr up to 2.5 and hgb down 2 grams from 06/28. She is on eliquis 5mg BID.
She reports occasional dark stools however nothing dark or bloody that she noticed recently. Trop negative x1. BP responding to IVF in ER. Does not appear overtly septic.
Progress Note - Insulation Professional
Subjective
Date of Service: July 02, 2023
No complaints other than that she did not sleep well.
Objective
Labs:
07/02/23 06:03
07/02/23 06:03
Labs
Hgb 11.3 g/dL (12.0-16.0) L 07/02/23 06:03
Hct 35.5 % (37.0-47.0) L 07/02/23 06:03
Plt Count 232 10^3/uL (130-400) 07/02/23 06:03
Sodium 139 mmol/L (135-145) 07/02/23 06:03
Potassium 4.4 mmol/L (3.5-5.1) 07/02/23 06:03
BUN 34 mg/dl (7-17) H 07/02/23 06:03
Creatinine 1.4 mg/dL (0.6-1.0) H 07/02/23 06:03
Glucose 86 mg/dl (70-99) 07/02/23 06:03
Troponins
07/01/23
12:48
Troponin I < 0.012
Vital Signs and I&O:
Vital Signs
Temp Pulse Resp BP Pulse Ox
97.5 F 63 16 116/46 99
07/02/23 07:56 07/02/23 07:56 07/02/23 07:56 07/02/23 07:56 07/02/23 07:56
Vital Signs
Temp Pulse Resp BP Pulse Ox
97.5 F 63 16 116/46 99
07/02/23 07:56 07/02/23 07:56 07/02/23 07:56 07/02/23 07:56 07/02/23 07:56
Intake & Output
06/30/23 07/01/23 07/02/23 07/03/23
06:59 06:59 06:59 06:59
Intake Total 1330 / 1330
Output Total 1350 / 1350
Balance -20 / -20
Physical Exam
Physical Exam
GEN: No distress, awake, alert, oriented x3
HEENT: supple, anicteric, mmm
LUNGS: CTA b/l, no wheezes/rales
CV: Reg, S1/S2, no murmur
EXT: No clubbing, cyanosis, or edema
NEURO: Gross non-focal
SKIN: Warm, dry, no rash
--- NOTE | 2023-07-02 10:42 | W.PN.HOSP.TC ---
Today's Communication/Plan
-
Bowel regimen
Heme test stools
Continue with fluids
Hold BP meds
Assessment / Plan
Assessment / Plan
IMPRESSION:
77-year-old female with history of hypertension, COPD, stage I breast cancers, sent to the hospital by associate professor of sociology for evaluation of the hypotension.
#Generalized weakness
#Acute kidney injury: Likely secondary to hypotension, dehydration and taking blood pressure medications specially lisinopril
#Dehydration
#Hypercalcemia, calcium 11.1 likely secondary to dehydration, other causes need to be considered if not improving with IV hydration
Creatinine continues to improve. Creatinine 1.4 from 2.5 yesterday.
Continue to hold lisinopril
Continue with IV fluids
CT abd/pelvis -There is no evidence for pelvicalyceal dilation or ureteral dilation bilaterally. Renal parenchymal thickness appears preserved.
No hydronephrosis
Continue to trend creatinine
Renally dose medication
Calcium normalized
Midodrine as needed
#Hypertension Primary
Blood pressure well-controlled 116/46
Continue to hold meds
#Paroxysmal atrial fibrillation
Continue with beta-coral and Eliquis
Monitor on telemetry
#Dark-colored stools few weeks ago
#GERD
Heme test stools pending
If Positive will need GI input
Drop in hemoglobin likely dilutional. No ronna luminal bleeding noted so far
COPD not in acute exacerbation
History of left breast invasive ductal carcinoma stage I diagnosed many years ago
Anticipated Discharge: > 48 hours
Subjective/Interval History
-
Date of Service: July 02, 2023
states feeling better
had dark color stools few weeks ago
no BRBPR
No abd pain or cramps or hematemesis
states of chronic reflux
Objective Data
-
Labs:
Laboratory Results
07/02/23
06:03
WBC 8.6
Hgb 11.3 L
Hct 35.5 L
Plt Count 232
Sodium 139
Potassium 4.4
Chloride 112 H
Carbon Dioxide 20 L
BUN 34 H
Creatinine 1.4 H
Glucose 86
Calcium 9.8
Vital Signs:
Vital Signs
Temp Pulse Resp BP Pulse Ox
97.5 F 63 16 116/46 99
07/02/23 07:56 07/02/23 07:56 07/02/23 07:56 07/02/23 07:56 07/02/23 07:56
I&O
07/01/23 07/02/23 07/03/23
06:59 06:59 06:59
Intake Total 1330 / 1330
Output Total 1350 / 1350
Balance -20 / -20
Physical Exam
-
General: Well Developed, Well Nourished and No Apparent Distress
HEENT: Normocephalic, Atraumatic and Moist Mucous Membranes
Respiratory: Clear to Auscultation; Negative Wheezes, Rales or Rhonchi
Cardiac: Regular Rhythm and S1/S2
GI: Soft, Nontender, Nondistended and Normal Bowel Sounds
Musculoskeletal: No Clubbing, No Cyanosis and No Edema
Neuro: Awake, Alert, Oriented and No Motor Deficits
Psych: Calm
Data Reviewed
-
Total Time Spent with Patient (in minutes): 55
[2023-07-02] MEDS: SENOKOT-S 1 TABLET PO ×2 (10:59→20:24)
[2023-07-02 11:54] VITALS: BP 103/39
[2023-07-02 15:29] VITALS: BP 123/53
[2023-07-02] MEDS: TUMS EX (EXTRA STRENGTH) CHEWABLE 1 TABLET PO (18:23)
[2023-07-02 19:19] VITALS: BP 121/55
[2023-07-02 23:20] VITALS: BP 148/73
[2023-07-03] VITALS (7 sets, daily range): BP systolic 125–159; BP diastolic 57–75; PULSE 67; O2SAT 98
[2023-07-03] MEDS: LR 1000 IV (05:31)
[2023-07-03 06:15] LABS: % Basophils 0.9 % (0-2); % Eosinophils 4.6 % (0-6); % Immature Granulocytes 0.3 % (0-0.5); % Lymphocytes 27.4 % (20.5-51.1); % Neutrophils 56.8 % (42.2-75.2); Absolute Basophils 0.1 10^3/uL (0-0.2); Absolute Eosinophils 0.3 10^3/uL (0-0.7); Absolute Lymphocytes 1.9 10^3/uL (1.2-3.4); Absolute Monocytes 0.7 10^3/uL (0.1-0.6); Hematocrit 33.3 % (37.0-47.0); Hemoglobin 10.8 g/dL (12.0-16.0); Mean Corp Hgb Conc. 32.4 g/dL (33.0-37.0); Mean Corpuscular Volume 86.3 fL (81.0-99.0); Nucleated Red Blood Cells % 0 %; Platelet Count 234 10^3/uL (130-400); Red Blood Cell Count 3.86 10^6/uL (4.20-5.40); Red Cell Dist. Width 15.2 % (11.5-14.5)
[2023-07-03 06:41] LABS: Blood Urea Nitrogen 20 mg/dl (7-17); Calcium 10.5 mg/dl (8.4-10.2); Carbon Dioxide 21 mmol/L (22-30); Chloride 111 mmol/L (98-107); Estimated Creatinine Clearance 50 ml/min; Glucose 90 mg/dl (70-99); Potassium 4.5 mmol/L (3.5-5.1); Sodium 140 mmol/L (135-145); eGFR 57.66
[2023-07-03] MEDS: TOPROL XL 25 MG PO ×2 (07:18→20:28)
[2023-07-03] MEDS: SYMMETREL 100 MG PO ×2 (07:18→20:28)
[2023-07-03] MEDS: ZANAFLEX 4 MG PO ×3 (07:18→21:59)
[2023-07-03] MEDS: SENOKOT-S 1 TABLET PO (07:19)
[2023-07-03] MEDS: ELIQUIS 5 MG PO ×2 (07:19→20:29)
[2023-07-03] MEDS: LIPITOR 10 MG PO (07:19)
[2023-07-03] MEDS: PROTONIX 40 MG PO (07:19)
--- NOTE | 2023-07-03 10:43 | W.PN.HOSP.TC ---
Today's Communication/Plan
-
DC fluid
Monitor blood pressure
Rehab evaluation
Assessment / Plan
Assessment / Plan
IMPRESSION:
77-year-old female with history of hypertension, COPD, stage I breast cancers, sent to the hospital by leak hunter for evaluation of the hypotension.
#Generalized weakness
#Acute kidney injury: Likely secondary to hypotension, dehydration and taking blood pressure medications specially lisinopril
#Dehydration
#Hypercalcemia, calcium 11.1 likely secondary to dehydration, other causes need to be considered if not improving with IV hydration
Creatinine continues to improve. Creatinine stabilized to 1.
Continue to hold lisinopril
Monitor off IV fluids.
CT abd/pelvis -There is no evidence for pelvicalyceal dilation or ureteral dilation bilaterally. Renal parenchymal thickness appears preserved.
No hydronephrosis
Continue to trend creatinine
Renally dose medication
Calcium normalized
Midodrine as needed
Monitor blood pressure
#Hypertension Primary
Monitor blood pressure this morning seems to be elevated. If persistently elevated and orthostatic negative can restart Norvasc
#Paroxysmal atrial fibrillation
Continue with beta-coral and Eliquis
Monitor on telemetry
#Dark-colored stools few weeks ago
#GERD
Heme test stools NEGATIVE
Drop in hemoglobin likely dilutional. No ronna luminal bleeding noted so far
COPD not in acute exacerbation
History of left breast invasive ductal carcinoma stage I diagnosed many years ago
PT/OT
Anticipated Discharge: Within 24 hours
Subjective/Interval History
-
Date of Service: July 03, 2023
Denies lightheaded or dizziness
States of constipation
Objective Data
-
Labs:
Laboratory Results
07/03/23
05:51
WBC 7.0
Hgb 10.8 L
Hct 33.3 L
Plt Count 234
Sodium 140
Potassium 4.5
Chloride 111 H
Carbon Dioxide 21 L
BUN 20 H
Creatinine 1.0
Glucose 90
Calcium 10.5 H
Vital Signs:
Vital Signs
Temp Pulse Resp BP Pulse Ox
98.4 F 70 16 159/75 100
07/03/23 07:50 07/03/23 07:50 07/03/23 07:50 07/03/23 07:50 07/03/23 07:50
I&O
07/02/23 07/03/23 07/04/23
06:59 06:59 06:59
Intake Total 2410 / 2410
Output Total 3650 / 3650
Balance -1240 / -1240
Physical Exam
-
General: Well Developed, Well Nourished and No Apparent Distress
HEENT: Normocephalic, Atraumatic and Moist Mucous Membranes
Respiratory: Clear to Auscultation; Negative Wheezes, Rales or Rhonchi
Cardiac: Regular Rhythm and S1/S2
GI: Soft, Nontender, Nondistended and Normal Bowel Sounds
Musculoskeletal: No Clubbing, No Cyanosis and No Edema
Neuro: Awake, Alert, Oriented and No Motor Deficits
Psych: Calm
Data Reviewed
-
Total Time Spent with Patient (in minutes): 55
[2023-07-03] MEDS: NORVASC 2.5 MG PO (13:18)
[2023-07-03] MEDS: SENOKOT-S PO (20:29)
[2023-07-03 21:53] LABS: Glucose - Point of Care 100 mg/dl (70-99)
[2023-07-04] MEDS: TYLENOL 650 MG PO (02:33)
[2023-07-04 03:00] VITALS: BP 123/55
[2023-07-04 06:54] LABS: % Basophils 0.7 % (0-2); % Eosinophils 4.4 % (0-6); % Immature Granulocytes 0.4 % (0-0.5); % Lymphocytes 34.4 % (20.5-51.1); % Monocytes 9.2 % (1.7-9.3); % Neutrophils 50.9 % (42.2-75.2); Absolute Basophils 0.1 10^3/uL (0-0.2); Absolute Eosinophils 0.3 10^3/uL (0-0.7); Absolute Lymphocytes 2.4 10^3/uL (1.2-3.4); Absolute Monocytes 0.7 10^3/uL (0.1-0.6); Absolute Neutrophils 3.6 10^3/uL (1.4-6.5); Hematocrit 33.7 % (37.0-47.0); Hemoglobin 11.1 g/dL (12.0-16.0); Mean Corp Hgb Conc. 32.9 g/dL (33.0-37.0); Mean Corpuscular Hgb 28.2 pg (27.0-31.0); Mean Corpuscular Volume 85.8 fL (81.0-99.0); Mean Platelet Volume 10.1 fL (7.4-10.4); Nucleated Red Blood Cells % 0 %; Platelet Count 277 10^3/uL (130-400); Red Blood Cell Count 3.93 10^6/uL (4.20-5.40); Red Cell Dist. Width 14.9 % (11.5-14.5)
[2023-07-04 07:24] LABS: Blood Urea Nitrogen 18 mg/dl (7-17); Calcium 10.3 mg/dl (8.4-10.2); Carbon Dioxide 24 mmol/L (22-30); Chloride 108 mmol/L (98-107); Estimated Creatinine Clearance 56 ml/min; Glucose 98 mg/dl (70-99); Potassium 4.6 mmol/L (3.5-5.1); Sodium 137 mmol/L (135-145); eGFR > 60.00
[2023-07-04 07:48] VITALS: BP 145/79; BP 148/79; PULSE 60; PULSE 62
[2023-07-04] MEDS: SYMMETREL 100 MG PO (08:02)
[2023-07-04] MEDS: PROTONIX 40 MG PO (08:02)
[2023-07-04] MEDS: LIPITOR 10 MG PO (08:02)
[2023-07-04] MEDS: SENOKOT-S 1 TABLET PO (08:03)
[2023-07-04] MEDS: NORVASC 2.5 MG PO (08:03)
[2023-07-04] MEDS: ZANAFLEX 4 MG PO (08:03)
[2023-07-04] MEDS: TOPROL XL 25 MG PO (08:03)
[2023-07-04] MEDS: ELIQUIS 5 MG PO (08:03)
--- NOTE | 2023-07-04 10:25 | CM ---
Met with patient is admitted from home. SHe lives in one level home with 3 steps to enter at [facility].
She is independent using no device in home and cane in community. She has a rollator and rolling walker. She will return to using rolling walker and advance back to cane. She has rub rail.
PCP Nanette He
RX: Linda Bustillos
She has had [facility] in past.
PLAN:Home today no needs.
Her neighbor will pick her up to go home.
--- NOTE | 2023-07-04 10:32 | W.PN.HOSP.TC ---
Today's Communication/Plan
-
see note
Assessment / Plan
Assessment / Plan
IMPRESSION:
77-year-old female with history of hypertension, COPD, stage I breast cancers, sent to the hospital by student development coordinator for evaluation of the hypotension.
#Generalized weakness
#Acute kidney injury: Likely secondary to hypotension, dehydration and taking blood pressure medications specially lisinopril
#Dehydration
#Hypercalcemia, calcium 11.1 likely secondary to dehydration, other causes need to be considered if not improving with IV hydration
Creatinine continues to improve. Creatinine stabilized to 1.
Continue to hold lisinopril on dc. OP f/u with cards.
Monitored off IV fluids.
CT abd/pelvis -There is no evidence for pelvicalyceal dilation or ureteral dilation bilaterally. Renal parenchymal thickness appears preserved.
No hydronephrosis
Continue to trend creatinine
Renally dose medication
Calcium normalized
#Hypertension Primary
Restarted Norvasc. Outpatient cardiology follow-up for further management.
#Paroxysmal atrial fibrillation
Continue with beta-coral and Eliquis
Monitor on telemetry
#Dark-colored stools few weeks ago
#GERD
Heme test stools NEGATIVE. Hemoglobin stable.
Drop in hemoglobin likely dilutional. No ronna luminal bleeding noted so far
#Urinary retention
-passing urine now without severe retention
-OP urology f/u.
COPD not in acute exacerbation
History of left breast invasive ductal carcinoma stage I diagnosed many years ago
PT/OT outpatient.
More than 30 minutes spent in discharge including
Final examination of the patient
Summarizing hospital stay
Instructions for continuing care to all relevant caregivers
Preparation of discharge records, prescriptions, and referral forms
Total time spent (in minutes): 60
Anticipated Discharge: Today
Subjective/Interval History
-
Date of Service: July 04, 2023
Passing urine
Denies lightheadedness or dizziness
Objective Data
-
Labs:
Laboratory Results
07/04/23
06:31
WBC 7.0
Hgb 11.1 L
Hct 33.7 L
Plt Count 277
Sodium 137
Potassium 4.6
Chloride 108 H
Carbon Dioxide 24
BUN 18 H
Creatinine 0.9
Glucose 98
Calcium 10.3 H
Vital Signs:
Vital Signs
Temp Pulse Resp BP Pulse Ox
97.5 F 60 18 145/79 96
07/04/23 07:48 07/04/23 08:03 07/04/23 07:48 07/04/23 08:03 07/04/23 07:48
I&O
07/03/23 07/04/23 07/05/23
06:59 06:59 06:59
Intake Total 2410 / 2410 1380 / 1380
Output Total 3650 / 3650 1280 / 1280
Balance -1240 / -1240 100 / 100
Physical Exam
-
General: Well Developed, Well Nourished, No Apparent Distress and Other (sitting in chair. )
HEENT: Normocephalic, Atraumatic and Moist Mucous Membranes
Respiratory: Clear to Auscultation; Negative Wheezes, Rales or Rhonchi
Cardiac: Regular Rhythm and S1/S2
GI: Soft, Nontender, Nondistended and Normal Bowel Sounds
Musculoskeletal: No Clubbing, No Cyanosis and No Edema
Neuro: Awake, Alert, Oriented and No Motor Deficits
Psych: Calm
--- NOTE | 2023-07-04 10:37 | W.DCSUMMARY ---
Discharge Summary
Discharge Data
Date of Admission: 07/01/23
Date of Discharge: 07/04/23
-
Pending Results: No
Hospital Course
77-year-old female with history of hypertension, COPD, stage I breast cancers, sent to the hospital by podiatric medicine professor for evaluation of the hypotension. Patient was found to elevated creatinine. Initially on admission Norvasc and lisinopril was
held. Patient creatinine stabilized and IV fluid was discontinued. Patient underwent CT abdomen pelvis There is no evidence for pelvicalyceal dilation or ureteral dilation bilaterally. Renal parenchymal thickness appears preserved. Patient blood
pressure status stabilized and restarted on Norvasc. Underwent echocardiogram which showed EF of 60 to 65%. Grade 1 diastolic dysfunction. Normal right ventricular size and systolic function. Patient will follow-up outpatient with cardiology and
primary doctor to consider additional medication if blood pressure continues remain on the higher side. Patient was also heme check and was found to be negative. Patient was eval by PT and OT and be discharged home.
Discharge Plan
-
Patient Disposition: Home with Home Care
Discharge Diagnosis/Procedures: Generalized weakness
Acute kidney injury likely secondary to hypotension and dehydration and lisinopril
Condition: Fair
Diet: As tolerated
Activity: With assistance and As tolerated
Driving Restrictions: Not until seen by your Dr
Referrals:
Nantete He MD [Family Provider] - in less than 1 week
Lauren Quezada CRNP [Specified Professional Personl] - 08/02/23 10:00 am (You have a follow up visit with Lauren at the [place] office. Please call with questions. )
Additional Discharge Medication Instructions: Lisinopril was discontinued
Prescriptions:
Continued
amantadine HCl 100 MG capsule
100 mg PO BID
atorvastatin 10 MG tablet
10 mg PO DAILY Qty: 30 0RF
Rx Instructions:
NEW MED
metoprolol succinate 25 MG tablet extended release 24 hr
25 mg PO BID Qty: 30 0RF
amlodipine 2.5 mg Tablet
2.5 mg PO DAILY
tizanidine 2 MG tablet
4 mg PO TID
Eliquis 5 MG tablet
5 mg PO BID
Rx Instructions:
NEW DOSE
omeprazole 40 MG capsule,delayed release(DR/EC)
40 mg PO DAILY Qty: 30 0RF
Discontinued
lisinopril 20 mg Tablet
20 mg PO DAILY
Discharge Orders:
Discharge Patient (As Directed); Ordered 07/04/23
Ordered By: Desean Aguirre
Discharge Date and Time
Discharge Date/Time: 07/04/23 11:54
Print Language: KYRGYZ
[2023-07-04 11:48] VITALS: BP 110/66
== END 2023-07-04 11:54 | disposition home or self-care (01) | DRG 683 ==
LOC: 3 WEST ACU 16:46
PROVIDERS: Emergency Medicine; Nurse Practitioner Family; ADMITTING PHYSICIAN Internal Medicine; ATTENDING PHYSICIAN Hospitalist; EMERGENCY PHYSICIAN Emergency Medicine; FAMILY PHYSICIAN Emergency Medicine
DX: N17.9 Acute kidney failure, unspecified (principal); E87.1 Hypo-osmolality and hyponatremia; T46.4X5A Adverse effect of angiotensin-converting-enzyme inhibitors, initial encounter; E86.0 Dehydration; I95.9 Hypotension, unspecified; G35 Multiple sclerosis; J44.9 Chronic obstructive pulmonary disease, unspecified; R63.4 Abnormal weight loss; E78.00 Pure hypercholesterolemia, unspecified; I48.0 Paroxysmal atrial fibrillation; N18.9 Chronic kidney disease, unspecified; I13.10 Hypertensive heart and chronic kidney disease without heart failure, with stage 1 through stage 4 chronic kidney disease, or unspecified chronic kidney disease; K21.9 Gastro-esophageal reflux disease without esophagitis; I48.91 Unspecified atrial fibrillation; E83.52 Hypercalcemia; D64.9 Anemia, unspecified; R33.9 Retention of urine, unspecified; K44.9 Diaphragmatic hernia without obstruction or gangrene; G31.84 Mild cognitive impairment of uncertain or unknown etiology; Z68.29 Body mass index [BMI] 29.0-29.9, adult; Z85.3 Personal history of malignant neoplasm of breast; Z87.891 Personal history of nicotine dependence; Z92.3 Personal history of irradiation; Z88.1 Allergy status to other antibiotic agents; Z79.01 Long term (current) use of anticoagulants; Z87.19 Personal history of other diseases of the digestive system; Y92.9 Unspecified place or not applicable
CPT/HCPCS: 71046; 74176; 80048; 80053; 81003; 81015; 82962; 83605; 84443; 84484; 85025; 87086; 93005; 93306; 96360; 96361; 97116; 97162; 97166; 99285

== ENCOUNTER 2023-07-07 21:40 | Emergency (ER) | payer OTHER, SELFPAY ==
[2023-07-07 21:40] VITALS: BMI 30.7
[2023-07-07 21:42] VITALS: BP 167/106
[2023-07-07 21:44] VITALS: BP 172/109
[2023-07-07 21:45] VITALS: BP 167/106
[2023-07-07 22:00] VITALS: BP 152/99
[2023-07-07] MEDS: CARAFATE SUSPENSION 1 GM PO (22:04)
[2023-07-07 22:16] LABS: % Basophils 0.6 % (0-2); % Eosinophils 1.7 % (0-6); % Immature Granulocytes 0.3 % (0-0.5); % Lymphocytes 19.6 % (20.5-51.1); % Monocytes 8.4 % (1.7-9.3); % Neutrophils 69.4 % (42.2-75.2); Absolute Basophils 0.1 10^3/uL (0-0.2); Absolute Eosinophils 0.2 10^3/uL (0-0.7); Absolute Lymphocytes 2.3 10^3/uL (1.2-3.4); Hematocrit 38.3 % (37.0-47.0); Hemoglobin 12.7 g/dL (12.0-16.0); Mean Corp Hgb Conc. 33.2 g/dL (33.0-37.0); Mean Corpuscular Hgb 27.7 pg (27.0-31.0); Mean Corpuscular Volume 83.4 fL (81.0-99.0); Mean Platelet Volume 9.7 fL (7.4-10.4); Nucleated Red Blood Cells % 0 %; Platelet Count 359 10^3/uL (130-400); Red Blood Cell Count 4.59 10^6/uL (4.20-5.40); Red Cell Dist. Width 14.9 % (11.5-14.5); White Blood Cell Count 11.5 10^3/uL (4.8-10.8)
[2023-07-07 22:29] LABS: ALT (SGPT) 20 U/L (0-35); AST (SGOT) 18 U/L (14-36); Albumin 4.5 g/dl (3.5-5.0); Alkaline Phosphatase 108 U/L (38-126); Blood Urea Nitrogen 23 mg/dl (7-17); Calcium 11.3 mg/dl (8.4-10.2); Carbon Dioxide 22 mmol/L (22-30); Chloride 106 mmol/L (98-107); Estimated Creatinine Clearance 51 ml/min; Glucose 117 mg/dl (70-99); Potassium 4.2 mmol/L (3.5-5.1); Sodium 141 mmol/L (135-145); Total Bilirubin 0.3 mg/dl (0.2-1.3); Total Protein 7.3 g/dl (6.3-8.2); eGFR 57.66
[2023-07-07 22:41] LABS: Troponin I < 0.012 ng/ml
[2023-07-08 00:20] VITALS: BP 156/90
[2023-07-08 01:00] VITALS: BP 147/82
[2023-07-08] MEDS: PROTONIX 40 MG PO (01:00)
[2023-07-08] MEDS: MAALOX 30 ML PO (01:00)
[2023-07-08 01:47] LABS: Troponin I < 0.012 ng/ml
--- NOTE | 2023-07-08 01:56 | ED.GENMED ---
History of Present Illness
<DO Jaime Kennedy Last Filed: 07/08/23 02:02>
General
Chief Complaint: Weakness
Source: patient
Time Seen by Provider: 07/07/23 21:49
Travel History
Have you had any contact with someone who has COVID-19?: No
Do you have any symptoms of coronavirus? Fever > 100 degrees, chills, cough, shortness of breath, sore throat, loss of taste or smell, muscle aches, or headache?: No
History of Present Illness
History of Present Illness:
77-year-old female presents with burning in her chest. The patient complains of reflux. She also has felt weak. She had a Wednesday get feeling weak on Wednesday or Wednesday. Patient states that for the last day and a half she has had reflux. No
shortness of breath. No fevers history of breast cancer, COPD, hypertension. Was recently taken off a few blood pressure medications.
Past History
<DO Jaime Kennedy Last Filed: 07/08/23 02:02>
Past History
ED Past Medical History: Arrthythmia (Atrial fibrillation), Cancer (Breast, 'mass found near ureter'), COPD, GERD (PUD, gastritis), HTN, Hypercholesterolemia and Other (MS, CKD)
ED Past Surgical History: Orthopedic and Other
Patient has exhibited threatening behavior?: No
Social History
Tobacco: Former smoker (Breast cancer diagnosed in February 2015 treated with lumpectomy and radiation)
Alcohol: None
Drug: None
Personal: Single
Living: alone
Employment: Other (care management assistant)
Family History
Family History: Other (n/c)
Phy Exam
<DO Jaime Kennedy Filed: 07/08/23 02:02>
Physical Exam
Physical Exam:
CONSTITUTIONAL Patient alert and oriented to person, place and time. Well-appearing. Vital signs reviewed.
HEAD atraumatic, normocephalic.
EYES eyelids normal to inspection, Extraocular muscles intact, Conjunctiva normal, Sclera normal.
NECK normal range of motion, Trachea midline, no jugular venous distention.
RESPIRATORY CHEST No respiratory distress noted, Chest expansion equal, Bilateral breath sounds clear.
CARDIOVASCULAR regular and tachycardic, Heart sounds normal.
ABDOMEN abdomen nontender, Bowel sounds normal. No distention.
BACK normal inspection, no obvious deformities
UPPER EXTREMITY range of motion normal, Motor strength normal, no cyanosis, no edema.
LOWER EXTREMITY range of motion normal, Motor strength normal, no cyanosis, no edema.
NEURO Speech normal, No focal motor deficits, Frankie coma scale 15, Memory normal, Cranial Nerves intact to screening exam.
SKIN skin warm, dry, and normal in color.
Course
<Gustavo Trejo, - Last Filed: 07/08/23 02:02>
Orders/Labs/Results
Orders:
Orders
07/07/23 21:43
Electrocardiogram (*1) Urgent
Reason for Study: Chest Pain
07/07/23 21:44
EKG- Treatment ONCE
07/07/23 21:59
CR Chest - 2 Views Urgent
Comment:
Reason For Exam: cp
07/07/23 22:03
Sucralfate Suspension [Carafate Suspension] 1 gm .ROUTE .STK-MED ONE
07/07/23 22:04
Sucralfate Suspension [Carafate Suspension] 1 gm PO NOW STA
07/07/23 22:06
Comprehensive Metabolic Panel Urgent
Troponin I Urgent
07/07/23 22:07
Complete Blood Count/With Diff Urgent
07/08/23 00:56
Mag Hydrox/Al Hydrox/Simeth [Maalox] 30 ml PO NOW STA
Pantoprazole [Protonix] 40 mg PO NOW STA
07/08/23 01:04
Troponin I Urgent
07/08/23 01:58
CT Chest Pe Study Urgent
Comment:
Reason For Exam: cp, recent hospitalization
07/08/23 02:17
Tizanidine [Zanaflex] 4 mg PO NOW STA
07/08/23 03:12
Sucralfate Suspension [Carafate Suspension] 1 gm PO NOW STA
Abnormal Lab Results
07/07/23 07/07/23
22:06 22:07
WBC 11.5 H 10^3/uL
(4.8-10.8)
RDW 14.9 H %
(11.5-14.5)
Absolute Neuts (auto) 8.0 H 10^3/uL
(1.4-6.5)
Absolute Monos (auto) 1.0 H 10^3/uL
(0.1-0.6)
Lymphocytes % 19.6 L %
(20.5-51.1)
BUN 23 H mg/dl
(7-17)
Glucose 117 H mg/dl
(70-99)
Calcium 11.3 H mg/dl
(8.4-10.2)
07/07/23 22:07
07/07/23 22:06
Vital Signs
Initial and Last Documented VS:
Initial Vital Signs
Temp Pulse Resp BP Pulse Ox
98.2 F 118 25 167/106 97
07/07/23 21:42 07/07/23 21:42 07/07/23 21:42 07/07/23 21:42 07/07/23 21:42
Last Documented Vital Signs
Temp Pulse Resp BP Pulse Ox
98.2 F 103 24 147/82 98
07/07/23 21:42 07/08/23 01:45 07/08/23 01:45 07/08/23 01:00 07/08/23 01:00
<Carley R. Quiñones, DO - Last Filed: 07/08/23 03:48>
Orders/Labs/Results
Orders:
Orders
07/07/23 21:43
Electrocardiogram (*1) Urgent
Reason for Study: Chest Pain
07/07/23 21:44
EKG- Treatment ONCE
07/07/23 21:59
CR Chest - 2 Views Urgent
Comment:
Reason For Exam: cp
07/07/23 22:03
Sucralfate Suspension [Carafate Suspension] 1 gm .ROUTE .STK-MED ONE
07/07/23 22:04
Sucralfate Suspension [Carafate Suspension] 1 gm PO NOW STA
07/07/23 22:06
Comprehensive Metabolic Panel Urgent
Troponin I Urgent
07/07/23 22:07
Complete Blood Count/With Diff Urgent
07/08/23 00:56
Mag Hydrox/Al Hydrox/Simeth [Maalox] 30 ml PO NOW STA
Pantoprazole [Protonix] 40 mg PO NOW STA
07/08/23 01:04
Troponin I Urgent
07/08/23 01:58
CT Chest Pe Study Urgent
Comment:
Reason For Exam: cp, recent hospitalization
07/08/23 02:17
Tizanidine [Zanaflex] 4 mg PO NOW STA
07/08/23 03:12
Sucralfate Suspension [Carafate Suspension] 1 gm PO NOW STA
Abnormal Lab Results
07/07/23 07/07/23
22:06 22:07
WBC 11.5 H 10^3/uL
(4.8-10.8)
RDW 14.9 H %
(11.5-14.5)
Absolute Neuts (auto) 8.0 H 10^3/uL
(1.4-6.5)
Absolute Monos (auto) 1.0 H 10^3/uL
(0.1-0.6)
Lymphocytes % 19.6 L %
(20.5-51.1)
BUN 23 H mg/dl
(7-17)
Glucose 117 H mg/dl
(70-99)
Calcium 11.3 H mg/dl
(8.4-10.2)
07/07/23 22:07
07/07/23 22:06
Vital Signs
Initial and Last Documented VS:
Initial Vital Signs
Temp Pulse Resp BP Pulse Ox
98.2 F 118 25 167/106 97
07/07/23 21:42 07/07/23 21:42 07/07/23 21:42 07/07/23 21:42 07/07/23 21:42
Last Documented Vital Signs
Temp Pulse Resp BP Pulse Ox
98.2 F 103 24 147/82 98
07/07/23 21:42 07/08/23 01:45 07/08/23 01:45 07/08/23 01:00 07/08/23 01:00
<DO Jaime Kennedy Last Filed: 07/08/23 02:02>
MDM/Problems Addressed
MDM/Problems Addressed:
Chest pain, gastroesophageal reflux disease, resting tachycardia
<Gustavo Trejo DO - Last Filed: 07/08/23 02:02>
*Radiology
Radiology exam reviewed: all reviewed NAD by ED Provider
*Pulse Oximetry
Patient hypoxic: no
*EKG
Interpreted by ED Provider?: Yes
Interpretation: abnormal
Rate: tachycardiac
Rhythm: sinus
Henderson: normal axis
Interval: normal interval
Ischemia: non-specific ST changes
*Asbestos Surveyor Interpretation
Rate: tachycardiac
Interpretation: abnormal
Rhythm: sinus
*Critical Care Note
Total Time (30-74mins, 75-104mins- exclusive of procedures): Not Applicable
Data Reviewed
Review of Other/Old Records Reveals: Discharge Summary (June 2023 discharge summary reviewed)
Source: patient
Prescriptions/Medications Considered But Not Given:
Consider aspirin but suspect reflux disease. Hold off on aspirin. Troponin x 2 unremarkable
<Carley Quiñones DO - Last Filed: 07/08/23 03:48>
*Radiology
Radiology exam reviewed: radiology read reviewed
<Gustavo Trejo DO - Last Filed: 07/08/23 02:02>
Patient Management
Escalation/DeEscalation of care consider admission/obs:
Patient does feel better. Troponin x 2 negative. Check CTA. Anticipate discharge
<Carley Quiñones DO - Last Filed: 07/08/23 03:48>
Update Note
Update Note:
Upon returning from CAT scan patient complains of recurrent substernal chest pain, heartburn that has resolved again readily with an additional dose of Carafate.
CAT scan shows no evidence of PE nor dissection, no pneumonia. There is note of a moderate-sized sliding hiatal hernia which is a likely cause for recurrent acid reflux.
There is also note of a right lower lobe nodule that appears slightly larger compared to previous CAT scan 2019, suspicious for low-grade adenocarcinoma.
Upon review of previous CTs April 2022 as well as 2019 there is no mention of cystic nodules. The CT will be reread by our radiologist and patient has been recommended to follow-up with PCP with results and to discuss need for further evaluation.
Recommend she avoid oral intake at least 4 hours prior to going to bed and elevate head of bed on several extra pillows.
Continue omeprazole 40 mg daily and she has been prescribed Carafate to be taken 4 times daily as needed for heartburn.
ED Attending Note
<DO Jaime Kennedy Last Filed: 07/08/23 02:02>
-
Portions of this chart may have been created with voice recognition software.� Occasional wrong word or��sound alike� substitutions may have occurred due to the inherent limitations of voice recognition software.
Discharge Plan
Departure
Patient Disposition: Home (Routine Discharge)
Date of Disposition: 07/08/23
Time of Disposition: 03:36
Patient with high blood pressure during this ER visit?: Yes
Condition: Good
Discharge Problem:
GERD (gastroesophageal reflux disease), Sliding hiatal hernia
Instructions: Acid reflux and GERD in adults, BLOOD PRESSURE
Prescriptions:
New
sucralfate [Carafate] 100 mg/mL suspension
10 ml PO QID Qty: 400 0RF
No Action
amantadine HCl 100 MG capsule
100 mg PO BID
atorvastatin 10 MG tablet
10 mg PO DAILY Qty: 30 0RF
Rx Instructions:
NEW MED
metoprolol succinate 25 MG tablet extended release 24 hr
25 mg PO BID Qty: 30 0RF
amlodipine 2.5 mg Tablet
2.5 mg PO DAILY
tizanidine 2 MG tablet
4 mg PO TID
Eliquis 5 MG tablet
5 mg PO BID
Rx Instructions:
NEW DOSE
omeprazole 40 MG capsule,delayed release(DR/EC)
40 mg PO DAILY Qty: 30 0RF
Referrals:
Nanette He MD [Family Provider] - Call in 1-3 days for appt
Activity Restrictions/Additional Instructions:
Please see your doctor in the next 3 days for follow-up and reevaluation. Return immediately for worsening pain, shortness of breath, weakness of any kind or any other concerns. Please be sure to take your omeprazole 30 minutes prior to breakfast
every morning.
Your CT shows a sliding hiatal hernia which is likely cause for acid reflux.
Avoid eating or drinking at least 4 hours prior to bedtime. Elevated head of bed on several pillows.
You have been prescribed sucralfate to take 4 times a day as needed for heartburn.
Your CT also shows a small cystic nodule right lower lobe that appears slightly larger when compared to prior CT 2020. CT will be reread by our radiologist this morning. Follow up with your family doctor to discuss further evaluation of this lung
nodule.
Interventions
Interventions:
*Risk Screen - Suicide Last Done: 07/07/23 21:42
*General Assessment Last Done: 07/08/23 00:23
*Neglect/Abuse Screening Last Done: 07/07/23 21:42
ED- Fall Risk Assessment Last Done: 07/07/23 21:50
*ED COVID-19 Vaccine History Last Done: 07/07/23 21:42
ED- Cardiac Assessment Last Done: 07/07/23 21:50
ED- Neurological Assessment Last Done: 07/07/23 21:50
ED- Pulmonary Assessment Last Done: 07/07/23 21:50
Discharge Date and Time
Print Language: SETSWANA
[2023-07-08 02:00] VITALS: BP 123/110
[2023-07-08] MEDS: ZANAFLEX 4 MG PO (02:34)
[2023-07-08 03:00] VITALS: BP 163/93
[2023-07-08] MEDS: CARAFATE SUSPENSION 1 GM PO (03:20)
[2023-07-08 06:12] VITALS: BP 138/97
== END 2023-07-08 06:29 | disposition home or self-care (01) ==
LOC: EMR 21:40
PROVIDERS: EMERGENCY PHYSICIAN Emergency Medicine; FAMILY PHYSICIAN Emergency Medicine
DX: K21.9 Gastro-esophageal reflux disease without esophagitis (principal); K44.9 Diaphragmatic hernia without obstruction or gangrene; I12.9 Hypertensive chronic kidney disease with stage 1 through stage 4 chronic kidney disease, or unspecified chronic kidney disease; N18.9 Chronic kidney disease, unspecified
CPT/HCPCS: 99285; 71046; 71275; 80053; 84484; 85025; 93005; Q9967

== ENCOUNTER → 2023-08-11 19:19 | Outpatient (REF) | payer OTHER, SELFPAY | LOC: MRI 19:19 | PROVIDERS: ATTENDING PHYSICIAN Emergency Medicine | DX: R53.83 Other fatigue (principal); G35 Multiple sclerosis; R91.8 Other nonspecific abnormal finding of lung field; R63.4 Abnormal weight loss | CPT/HCPCS: 70553; A9575 ==

== ENCOUNTER → 2023-11-29 15:20 | Outpatient (REF) | payer OTHER, SELFPAY ==
[2023-11-29 16:22] LABS: Ionized Calcium 1.31 mMOL/L (1.15-1.33)
[2023-11-29 16:42] LABS: Calcium 10.3 mg/dl (8.4-10.2)
[2023-11-30 17:47] LABS: Intact PTH 43.5 pg/ml (13.6-85.8)
== END ==
LOC: REG 15:20
PROVIDERS: ATTENDING PHYSICIAN Internal Medicine Critical Care Medicine; FAMILY PHYSICIAN Emergency Medicine
DX: R91.1 Solitary pulmonary nodule (principal); E83.52 Hypercalcemia
CPT/HCPCS: 36415; 71250; 82330; 83970

== ENCOUNTER → 2023-12-27 09:00 | Outpatient (REF) | payer OTHER, SELFPAY ==
[2023-12-27 08:41] VITALS: BMI 30.5
[2023-12-27 08:56] LABS: Hematocrit 39.6 % (37.0-47.0); Hemoglobin 12.7 g/dL (12.0-16.0); Mean Corp Hgb Conc. 32.1 g/dL (33.0-37.0); Mean Corpuscular Volume 84.1 fL (81.0-99.0); Mean Platelet Volume 9.8 fL (7.4-10.4); Platelet Count 332 10^3/uL (130-400); Red Blood Cell Count 4.71 10^6/uL (4.20-5.40); Red Cell Dist. Width 15.6 % (11.5-14.5); White Blood Cell Count 9.1 10^3/uL (4.8-10.8)
[2023-12-27 09:03] LABS: APTT 28.4 Sec (23.4-35.0)
[2023-12-27 09:27] LABS: Blood Urea Nitrogen 20 mg/dl (7-17); Calcium 11.4 mg/dl (8.4-10.2); Carbon Dioxide 22 mmol/L (22-30); Chloride 104 mmol/L (98-107); Estimated Creatinine Clearance 45 ml/min; Glucose 102 mg/dl (70-99); Potassium 4.4 mmol/L (3.5-5.1); Sodium 141 mmol/L (135-145); eGFR 51.43
== END ==
LOC: SDSPAT 09:00
PROVIDERS: ATTENDING PHYSICIAN Internal Medicine Critical Care Medicine; FAMILY PHYSICIAN Emergency Medicine
DX: R91.1 Solitary pulmonary nodule (principal)
CPT/HCPCS: 36415; 80048; 85027; 85610; 85730

== ENCOUNTER 2023-12-29 10:14 | Emergency (ER) | payer OTHER, SELFPAY ==
[2023-12-29 10:30] VITALS: BP 163/99
[2023-12-29 11:01] VITALS: BMI 31.1
[2023-12-29] MEDS: CARAFATE SUSPENSION 1 GM PO (11:35)
[2023-12-29] MEDS: PEPCID 20 MG IV (11:36)
--- NOTE | 2023-12-29 11:39 | ED.GENMED ---
History of Present Illness
General
Chief Complaint: Dizziness
Time Seen by Provider: 12/29/23 10:59
History of Present Illness
History of Present Illness:
77-year-old female presents to the emergency department for evaluation of dizziness and generalized weakness for the past 2 to 3 days. She also reports a dry cough and increased heartburn symptoms. She was scheduled to have a lung biopsy done
today and this was canceled due to the patient's symptoms. On her preop blood work she was noted to have hypercalcemia which she attributes to increased dose of eyxv-xry-humjbdd antacid medications. Patient is a difficult historian. She denies
fevers, night sweats, or chest pain. No vomiting or diarrhea.
Past History
Past History
ED Past Medical History: Arrthythmia (Atrial fibrillation), Cancer (Breast, 'mass found near ureter'), COPD, GERD (PUD, gastritis), HTN, Hypercholesterolemia and Other (MS, CKD)
ED Past Surgical History: Orthopedic and Other
Patient has exhibited threatening behavior?: No
Social History
Tobacco: Former smoker (Breast cancer diagnosed in February 2015 treated with lumpectomy and radiation)
Alcohol: None
Drug: None
Personal: Single
Living: alone
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
Family History
Family History: Other (n/c)
Review of Systems
Review of Systems
Allergies reviewed?: Yes
All Other Systems: ROS reviewed and negative except as documented in HPI and ROS
Phy Exam
Physical Exam
Physical Exam:
GEN: Well appearing, NAD, WDWN
HEENT: Oral mucosa moist, no scleral icterus
Cardiac: Regular rate and rhythm, no murmurs
Lung: No respiratory distress, no tachypnea, lungs clear to auscultation bilaterally
MSK: No gross deformity or injuries, no lower extremity edema
Skin: Good color, no pallor or jaundice, no rashes
Neuro: AO x3, moves all extremities freely
Psych: Calm, cooperative
Course
Orders/Labs/Results
Orders:
Orders
12/29/23 10:16
Electrocardiogram (*1) Urgent
Reason for Study: Vertigo / Dizzy
EKG- Treatment ONCE
12/29/23 11:08
CR Chest - 2 Views Urgent
Comment:
Reason For Exam: SOB
12/29/23 11:30
COVID-19 Antigen Urgent
Source: Nasal Swab
Complete Blood Count/With Diff Urgent
Comprehensive Metabolic Panel Urgent
Ionized Calcium Urgent
Influenza A+B Rapid Molecular Urgent
BIJU Source: Nasal Swab
Specimen Description:
12/29/23 11:31
Famotidine [Pepcid] 20 mg IV NOW STA
Sucralfate Suspension [Carafate Suspension] 1 gm PO NOW STA
12/29/23 12:22
0.9% Sodium Chloride 1000 ml [Nss] 1,000 ml IV BOLUS
12/29/23 12:46
Urinalysis Reflex To Culture Urgent
Date Specimen was Collected: 12/29/23
Time Specimen was Collected: 12:44
Urine Microscopic Reflex Cult Urgent
Abnormal Lab Results
12/29/23 12/29/23
11:30 12:46
MCHC 32.7 L g/dL
(33.0-37.0)
RDW 15.7 H %
(11.5-14.5)
Absolute Monos (auto) 0.8 H 10^3/uL
(0.1-0.6)
BUN 21 H mg/dl
(7-17)
Glucose 105 H mg/dl
(70-99)
Calcium 11.4 H mg/dl
(8.4-10.2)
Ionized Calcium 1.43 H mMOL/L
(1.15-1.33)
Leukocyte Esterase Rfl Trace A
(Negative)
Urine Bacteria (Reflex) Few A
(Negative)
12/29/23 11:30
12/29/23 11:30
Vital Signs
Initial and Last Documented VS:
Initial Vital Signs
Temp Pulse Resp BP Pulse Ox
98.8 F 100 20 163/99 97
12/29/23 10:30 12/29/23 10:30 12/29/23 10:30 12/29/23 10:30 12/29/23 10:30
Last Documented Vital Signs
Temp Pulse Resp BP Pulse Ox
98.8 F 87 18 179/89 95
12/29/23 10:30 12/29/23 13:30 12/29/23 13:30 12/29/23 13:00 12/29/23 13:30
MDM/Problems Addressed
MDM/Problems Addressed:
Patient report improvement in symptoms with IV fluids. Symptoms may be attributable to her moderate hypercalcemia which is at least in part due to excessive ingestion of forw-iwz-cxegjce antacids. She felt well enough to be discharged after workup
was completed, recommend close follow-up with primary care to have calcium levels rechecked
*Critical Care Note
Total Time (30-74mins, 75-104mins- exclusive of procedures): Not Applicable
ED Attending Note
-
Portions of this chart may have been created with voice recognition software.� Occasional wrong word or��sound alike� substitutions may have occurred due to the inherent limitations of voice recognition software.
Discharge Plan
Departure
Patient Disposition: Home (Routine Discharge)
Date of Disposition: 12/29/23
Time of Disposition: 13:26
Patient with high blood pressure during this ER visit?: No
Discharge Problem:
Hypercalcemia, Gastro-esophageal reflux
Instructions: Hypercalcemia (DC)
Prescriptions:
New
sucralfate [Carafate] 100 mg/mL suspension
10 ml PO AC Qty: 200 0RF
No Action
amantadine HCl 100 MG capsule
100 mg PO BID
amlodipine 2.5 mg Tablet
2.5 mg PO DAILY
tizanidine 2 MG tablet
4 mg PO QIDPRN PRN (Reason: muscle spasms )
Eliquis 5 MG tablet
5 mg PO BID
atorvastatin 10 MG tablet
10 mg PO DAILY
omeprazole 40 MG capsule,delayed release(DR/EC)
40 mg PO DAILY
metoprolol succinate 25 MG tablet extended release 24 hr
25 mg PO BID
albuterol sulfate [ProAir HFA] 90 mcg/actuation Hfa Aerosol Inhaler
2 puff INHALATION QIDPRN PRN (Reason: wheezing )
Trelegy Ellipta 100-62.5-25 mcg Blister With Device
1 inh INHALATION DAILY PRN (Reason: shortness of breath )
Referrals:
Nanette He MD [Family Provider] -
Activity Restrictions/Additional Instructions:
Stop using over the counter antacids
Have your calcium rechecked within the next week
Restart your Eliquis until you have rescheduled your biopsy
Interventions
Interventions:
*Risk Screen - Suicide Last Done: 12/29/23 11:02
*General Assessment Last Done: 12/29/23 11:02
*Neglect/Abuse Screening Last Done: 12/29/23 11:02
ED- Fall Risk Assessment Last Done: 12/29/23 11:06
*ED COVID-19 Vaccine History Last Done: 12/29/23 10:30
*Nursing Disposition Last Done: 12/29/23 13:59
ED- Neurological Assessment Last Done: 12/29/23 11:06
ED- Cardiac Assessment Last Done: 12/29/23 11:06
ED Swallowing Screen Last Done: 12/29/23 11:10
Discharge Date and Time
Discharge Date/Time: 12/29/23 14:00
Print Language: SWEDISH
[2023-12-29 11:53] LABS: Ionized Calcium 1.43 mMOL/L (1.15-1.33)
[2023-12-29 11:55] LABS: % Basophils 0.7 % (0-2); % Eosinophils 1.8 % (0-6); % Immature Granulocytes 0.4 % (0-0.5); % Lymphocytes 23.4 % (20.5-51.1); % Monocytes 8.4 % (1.7-9.3); % Neutrophils 65.3 % (42.2-75.2); Absolute Basophils 0.1 10^3/uL (0-0.2); Absolute Eosinophils 0.2 10^3/uL (0-0.7); Absolute Lymphocytes 2.1 10^3/uL (1.2-3.4); Absolute Monocytes 0.8 10^3/uL (0.1-0.6); Absolute Neutrophils 5.9 10^3/uL (1.4-6.5); Hematocrit 40.1 % (37.0-47.0); Hemoglobin 13.1 g/dL (12.0-16.0); Mean Corp Hgb Conc. 32.7 g/dL (33.0-37.0); Mean Corpuscular Hgb 27.6 pg (27.0-31.0); Mean Corpuscular Volume 84.4 fL (81.0-99.0); Mean Platelet Volume 9.6 fL (7.4-10.4); Nucleated Red Blood Cells % 0 %; Platelet Count 311 10^3/uL (130-400); Red Blood Cell Count 4.75 10^6/uL (4.20-5.40); Red Cell Dist. Width 15.7 % (11.5-14.5)
[2023-12-29 12:05] LABS: COVID-19 Antigen Negative (Negative)
[2023-12-29 12:07] LABS: ALT (SGPT) 24 U/L (0-35); AST (SGOT) 25 U/L (14-36); Albumin 4.7 g/dl (3.5-5.0); Alkaline Phosphatase 106 U/L (38-126); Blood Urea Nitrogen 21 mg/dl (7-17); Calcium 11.4 mg/dl (8.4-10.2); Carbon Dioxide 26 mmol/L (22-30); Chloride 105 mmol/L (98-107); Estimated Creatinine Clearance 65 ml/min; Glucose 105 mg/dl (70-99); Potassium 4.1 mmol/L (3.5-5.1); Sodium 144 mmol/L (135-145); Total Bilirubin 0.5 mg/dl (0.2-1.3); Total Protein 7.3 g/dl (6.3-8.2); eGFR > 60.00
[2023-12-29 12:24] VITALS: BP 172/86
[2023-12-29] MEDS: NSS 1000 IV (12:27)
[2023-12-29 12:56] LABS: Urine Albumin Negative (Neg - Trace); Urine Bilirubin Negative (Negative); Urine Character Clear (Clear); Urine Color Yellow; Urine Glucose Negative (Negative); Urine Ketone Negative (Negative); Urine Leukocyte Trace (Negative); Urine Nitrite Negative (Negative); Urine Occult Blood Negative (Negative); Urine Specific Gravity 1.025 (<1.030); Urine Urobilinogen Negative (Neg - 1+)
[2023-12-29 13:00] VITALS: BP 179/89
[2023-12-29 13:03] LABS: Urine Bacteria Few (Negative); Urine Red Blood Cell 0-2 /HPF (0-2)
== END 2023-12-29 14:00 | disposition home or self-care (01) ==
LOC: EMR 10:14
PROVIDERS: Physician Assistant; EMERGENCY PHYSICIAN Student in an Organized Health Care Education/Training Program; FAMILY PHYSICIAN Emergency Medicine
DX: E83.52 Hypercalcemia (principal); K21.9 Gastro-esophageal reflux disease without esophagitis; R53.1 Weakness; I48.91 Unspecified atrial fibrillation; J44.9 Chronic obstructive pulmonary disease, unspecified; I12.9 Hypertensive chronic kidney disease with stage 1 through stage 4 chronic kidney disease, or unspecified chronic kidney disease; N18.9 Chronic kidney disease, unspecified; E78.00 Pure hypercholesterolemia, unspecified; G35 Multiple sclerosis; Z85.3 Personal history of malignant neoplasm of breast; Z87.11 Personal history of peptic ulcer disease; Z87.19 Personal history of other diseases of the digestive system; Z87.891 Personal history of nicotine dependence
CPT/HCPCS: 99283; 96374; 96361; 71046; 80053; 81003; 81015; 82330; 85025; 87502; 87811; 93005

== ENCOUNTER 2024-01-17 06:34 | Day surgery (SDC) | payer OTHER, SELFPAY ==
[2024-01-17] VITALS (8 sets, daily range): BP systolic 113–151; BP diastolic 59–80; BMI 31.2
== END 2024-01-17 16:56 | disposition home or self-care (01) ==
LOC: SDS 06:34
PROVIDERS: ATTENDING PHYSICIAN Internal Medicine Critical Care Medicine
DX: R91.1 Solitary pulmonary nodule (principal)
CPT/HCPCS: 31629; 31628; 31624; 31623; 31627; 31654; 88173; 88305; 71045; 76000; 87015; 87070; 87077; 87102; 87116; 87205; 88112; 88333; 88334; 94640

== ENCOUNTER → 2024-05-25 11:22 | Outpatient (REF) | payer OTHER, SELFPAY | LOC: WDC 11:22 | PROVIDERS: ATTENDING PHYSICIAN Internal Medicine Hematology & Oncology; FAMILY PHYSICIAN Emergency Medicine | DX: Z12.31 Encounter for screening mammogram for malignant neoplasm of breast (principal) | CPT/HCPCS: 77063; 77067 ==

== ENCOUNTER → 2024-06-06 10:47 | Outpatient (REF) | payer OTHER, SELFPAY | LOC: RAD 10:47 | PROVIDERS: ATTENDING PHYSICIAN Internal Medicine Critical Care Medicine; FAMILY PHYSICIAN Emergency Medicine | DX: R91.1 Solitary pulmonary nodule (principal); R94.2 Abnormal results of pulmonary function studies; Z87.891 Personal history of nicotine dependence | CPT/HCPCS: 71250 ==

== ENCOUNTER 2024-07-02 19:58 | Emergency (ER) | payer MEDICARE, SELFPAY ==
[2024-07-02 19:59] VITALS: BP 175/96
[2024-07-02 21:50] VITALS: BMI 33.9
[2024-07-02 21:56] VITALS: BP 109/65
[2024-07-02 22:00] VITALS: BP 136/83
[2024-07-02 22:02] LABS: % Basophils 0.7 % (0-2); % Eosinophils 2.9 % (0-6); % Immature Granulocytes 0.7 % (0-0.5); % Lymphocytes 25.4 % (20.5-51.1); % Monocytes 9.5 % (1.7-9.3); % Neutrophils 60.8 % (42.2-75.2); Absolute Basophils 0.1 10^3/uL (0-0.2); Absolute Eosinophils 0.3 10^3/uL (0-0.7); Absolute Immature Granulocytes 0.1 10^3/uL (0-0.05); Absolute Lymphocytes 2.7 10^3/uL (1.2-3.4); Absolute Neutrophils 6.4 10^3/uL (1.4-6.5); Hematocrit 37.2 % (37.0-47.0); Hemoglobin 12.2 g/dL (12.0-16.0); Mean Corp Hgb Conc. 32.8 g/dL (33.0-37.0); Mean Corpuscular Hgb 28.2 pg (27.0-31.0); Mean Corpuscular Volume 85.9 fL (81.0-99.0); Mean Platelet Volume 9.6 fL (7.4-10.4); Nucleated Red Blood Cells % 0 %; Platelet Count 306 10^3/uL (130-400); Red Blood Cell Count 4.33 10^6/uL (4.20-5.40); Red Cell Dist. Width 15.7 % (11.5-14.5); White Blood Cell Count 10.5 10^3/uL (4.8-10.8)
[2024-07-02 22:19] LABS: ALT (SGPT) 31 U/L (0-35); AST (SGOT) 24 U/L (14-36); Alkaline Phosphatase 110 U/L (38-126); Blood Urea Nitrogen 18 mg/dl (7-17); Calcium 10.2 mg/dl (8.4-10.2); Carbon Dioxide 25 mmol/L (22-30); Chloride 110 mmol/L (98-107); Estimated Creatinine Clearance 62 ml/min; Glucose 127 mg/dl (70-99); Sodium 143 mmol/L (135-145); Total Bilirubin 0.4 mg/dl (0.2-1.3); Total Protein 6.7 g/dl (6.3-8.2); eGFR > 60.00
[2024-07-02 22:28] LABS: NT-proBNP 111 pg/ml; Troponin I < 0.012 ng/ml
--- NOTE | 2024-07-02 22:33 | ED.GENMED ---
History of Present Illness
<RODERICK Mckay - Last Filed: 07/03/24 00:15>
General
Chief Complaint: Weakness
Source: patient
Time Seen by Provider: 07/02/24 22:05
History of Present Illness
History of Present Illness:
Pt is a 78 yo F with a PMH of COPD and Afib presents to the ED c/o R arm pain and weakness x 'a few weeks', markedly worse today. She explains that she is having sharp pain in her R arm, pointing to the posterior aspect of the glenohumeral joint.
She explains that pain is worse when she lifts her arm up above her head. She explains she had a melanoma removed near there 4-5 years ago, and she is concerned about this due to her Mother having bone cancer in her arm following a melanoma removal.
Her weakness she feels was significantly worse today. She says she just feels extremely fatigued and is unable to proceed with her normal daily activities. She does endorse that she's been taking her medications as prescribed, including her Eliquis.
She denies fevers, N/V/D, dyspnea, BALTAZAR, congestion, or other associated symptoms.
Past History
<RODERICK Mckay - Last Filed: 07/03/24 00:15>
Past History
ED Past Medical History: Arrthythmia (Atrial fibrillation), Cancer (Breast, 'mass found near ureter'), COPD, GERD (PUD, gastritis), HTN, Hypercholesterolemia and Other (MS, CKD)
ED Past Surgical History: Orthopedic and Other
Patient has exhibited threatening behavior?: No
Social History
Tobacco: Former smoker (Breast cancer diagnosed in February 2015 treated with lumpectomy and radiation)
Alcohol: None
Drug: None
Personal: Single
Living: alone
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
Family History
Family History: Other (n/c)
Review of Systems
<RODERICK Mckay - Last Filed: 07/03/24 00:15>
Review of Systems
All Other Systems: ROS reviewed and negative except as documented in HPI and ROS
Phy Exam
<Karyna Kim [facility] - Last Filed: 07/03/24 00:15>
General Physical Exam
General Presentation: well appearing and no apparent distress
General age: appears stated age
General Skin: warm
General Mental: alert
Cardiovascular Exam
Cardiovascular Exam: regular rate/rhythm and normal peripheral pulses
Heart Sounds: normal
Pulmonary Exam
Breath Sounds: Crackles: left lower and right lower
Gastrointestinal Exam
Gastrointestinal Exam: normal bowel sounds
Musculoskeletal Exam
Musculoskeletal Exam: other (Decreased ROM in R shoulder, point tenderness at bicipital groove of R humerus)
Course
<Karyna Kim [facility] - Last Filed: 07/03/24 00:15>
Orders/Labs/Results
Orders:
Orders
07/02/24 20:03
Electrocardiogram (*1) Urgent
Reason for Study: Chest Pain
EKG- Treatment ONCE
07/02/24 21:49
BNP [NT-proBNP] Urgent
Complete Blood Count/With Diff Urgent
Comprehensive Metabolic Panel Urgent
Troponin I Urgent
07/02/24 23:06
Acetaminophen [Tylenol] 1,000 mg PO NOW STA
CR Shoulder, Trauma - Right Urgent
Reason For Exam: pain right shoulder x few weeks
Abnormal Lab Results
07/02/24
21:49
MCHC 32.8 L g/dL
(33.0-37.0)
RDW 15.7 H %
(11.5-14.5)
Abs Immat Gran (auto) 0.1 H 10^3/uL
(0-0.05)
Absolute Monos (auto) 1.0 H 10^3/uL
(0.1-0.6)
Immature Gran % 0.7 H %
(0-0.5)
Monocytes % 9.5 H %
(1.7-9.3)
Chloride 110 H mmol/L
(98-107)
BUN 18 H mg/dl
(7-17)
Glucose 127 H mg/dl
(70-99)
07/02/24 21:49
07/02/24 21:49
Vital Signs
Initial and Last Documented VS:
Initial Vital Signs
Temp Pulse Resp BP Pulse Ox
97.7 F 117 20 175/96 96
07/02/24 19:59 07/02/24 19:59 07/02/24 19:59 07/02/24 19:59 07/02/24 19:59
Last Documented Vital Signs
Temp Pulse Resp BP Pulse Ox
97.7 F 91 24 136/83 100
07/02/24 19:59 07/02/24 22:30 07/02/24 22:30 07/02/24 22:00 07/02/24 22:30
[place];Carley Quiñones, - Last Filed: 07/03/24 00:25>
Orders/Labs/Results
Orders:
Orders
07/02/24 20:03
Electrocardiogram (*1) Urgent
Reason for Study: Chest Pain
EKG- Treatment ONCE
07/02/24 21:49
BNP [NT-proBNP] Urgent
Complete Blood Count/With Diff Urgent
Comprehensive Metabolic Panel Urgent
Troponin I Urgent
07/02/24 23:06
Acetaminophen [Tylenol] 1,000 mg PO NOW STA
CR Shoulder, Trauma - Right Urgent
Reason For Exam: pain right shoulder x few weeks
Abnormal Lab Results
07/02/24
21:49
MCHC 32.8 L g/dL
(33.0-37.0)
RDW 15.7 H %
(11.5-14.5)
Abs Immat Gran (auto) 0.1 H 10^3/uL
(0-0.05)
Absolute Monos (auto) 1.0 H 10^3/uL
(0.1-0.6)
Immature Gran % 0.7 H %
(0-0.5)
Monocytes % 9.5 H %
(1.7-9.3)
Chloride 110 H mmol/L
(98-107)
BUN 18 H mg/dl
(7-17)
Glucose 127 H mg/dl
(70-99)
07/02/24 21:49
07/02/24 21:49
Vital Signs
Initial and Last Documented VS:
Initial Vital Signs
Temp Pulse Resp BP Pulse Ox
97.7 F 117 20 175/96 96
07/02/24 19:59 07/02/24 19:59 07/02/24 19:59 07/02/24 19:59 07/02/24 19:59
Last Documented Vital Signs
Temp Pulse Resp BP Pulse Ox
97.7 F 91 24 136/83 100
07/02/24 19:59 07/02/24 22:30 07/02/24 22:30 07/02/24 22:00 07/02/24 22:30
<RODERICK Mckay - Last Filed: 07/03/24 00:15>
*Critical Care Note
Total Time (30-74mins, 75-104mins- exclusive of procedures): Not Applicable
ED Attending Note
<RODERICK Mckay - Last Filed: 07/03/24 00:15>
-
Portions of this chart may have been created with voice recognition software.� Occasional wrong word or��sound alike� substitutions may have occurred due to the inherent limitations of voice recognition software.
<Carley Quiñones, DO - Last Filed: 07/03/24 00:25>
ED Attending Note
Patient seen and examined by attending physician: Yes
I performed the substantive portion of visit, reviewed & personally made and approve the management plan that is documented in note by myself or CRISTOBAL.: Yes
ED Attending Note:
This is a 78-year-old woman who resides at home, independently. She has history of COPD, follows with crew boss maintained on Trelegy and as needed albuterol. She has history of A-fib chronically maintained on Eliquis, history of hypertension,
hyperlipidemia, hiatal hernia, GERD, peptic ulcer disease as well as history of MS, follows with neurologist. She had routine visit with her primary care physician just 2 days ago, June 30 and at that appointment admitted that overall was not feeling
well. Apparently MS has been slowly worsening/progressing but she has not had a fall. She follows regularly with a neurologist, uses a cane versus walker for ambulation.
Her COPD overall has been stable.
She underwent biopsy of pulmonary nodule December 2023, biopsy was negative.
Remote history of bladder cancer without recurrence, follows regularly with urology.
During visit with her PCP 2 days ago she had an EKG done which reportedly showed PACs and PVCs. Discussion with her fabricator artificial breast, Dr. Moscoos during that office visit, recommended toincrease metoprolol succinate from 25 mg twice daily to 50 mg in
the morning, 25 mg in the evening. This prescription was written and sent to her pharmacy, patient has not received this as yet and upon further discussion with patient she now notes that she inadvertently ran out of her metoprolol and has not been
taking it at all. Unclear as to when she ran out of it.
She does however report compliance with Eliquis taking this twice daily. She has not been taking her PPI and believes the omeprazole is now 'off the market'. She is unsure if she has been taking her atorvastatin as well as her amlodipine. She has
been taking tizanidine as well as amantadine.
She has not had chest pain or palpitations, no dizziness or lightheadedness, no cough nor fever nor shortness of breath. She does however complain of several week history of right shoulder pain that is worse with movement. She has not noticed
swelling nor redness nor rash. She has been taking aspirin 325 mg, 2 tablets at least once sometimes twice per day for her shoulder pain.
She denies abdominal pain. She has had intermittent indigestion which she takes antacids perhaps every other day.
78-year-old woman appears her stated age, awake and alert, mildly hard of hearing but easily communicative and overall in no acute distress. Respirations are easy and nonlabored. No cough appreciated.
Heart is regular rate and rhythm at a rate of 90-100.
Lungs are clear to auscultation. Respirations are easy nonlabored.
Abdomen is soft without appreciable tenderness.
Right shoulder with mild to moderate tenderness anterolateral aspect. Moderate pain with abduction greater than 80 degrees. There is no soft tissue swelling nor joint effusion. No palpable crepitus, no erythema. There is no tenderness to the
upper arm or elbow. Peripheral pulses are full and equal bilaterally. Strength and sensation is intact.
EKG shows sinus tachycardia at 110, left axis deviation, no acute ST-T wave abnormalities and overall similar and unchanged from previous save heart rate has increased from 90 to now 110. Prior PACs noted on previous EKG December 2023 have now
resolved.
Monitor shows normal sinus rhythm, 80s to 90s. Rare PACs are noted.
Labs are reassuring with normal CBC, unremarkable chemistries. Negative troponin and normal BNP.
Although mild sinus tachycardia noted on EKG, heart rate has normalized. Patient has been compliant with twice daily Eliquis, thromboembolism is unlikely. It is also reassuring that she has had no chest pain. She does note mild dyspnea on
exertion that is overall chronic and unchanged.
I suspect uptrend in heart rate may be related to inadvertent discontinuation of metoprolol�running out of this prescription at some point.
Reassuring that lungs are clear to auscultation.
I suspect right shoulder DJD perhaps tendinitis. Nothing in exam to suggest inflammatory arthropathy nor infectious process. With normal troponin, ACS is unlikely.
Will check x-ray of right shoulder.
Will trial a dose of Tylenol. Lengthy discussion with patient that aspirin must be discontinued especially with long-term anticoagulation use as well as recommend she avoid NSAIDs.
With history of hiatal hernia, prior peptic ulcer disease recommend we resume PPI as well.
Overall appears stable and at this point no indication for hospitalization.
Will resume metoprolol, resume omeprazole and I have taken the liberty of refilling atorvastatin as well as amlodipine to hopefully ensure compliance.
Recommend follow-up with PCP as well as fabricator artificial breast and patient reportedly has a routine follow-up appointment with her crew boss scheduled for tomorrow.
Discharge Plan
Departure
Patient Disposition: Home (Routine Discharge)
Date of Disposition: 07/03/24
Time of Disposition: 00:18
Patient with high blood pressure during this ER visit?: No
Condition: Good
Discharge Problem:
Right shoulder tendinitis
Instructions: Rotator Cuff Tendinitis Stretching Exercises
Prescriptions:
New
atorvastatin 10 mg tablet
10 mg PO HS Qty: 90 0RF
amlodipine 2.5 mg tablet
2.5 mg PO DAILY Qty: 90 0RF
omeprazole 40 mg capsule,delayed release(DR/EC)
40 mg PO DAILY Qty: 90 0RF
metoprolol succinate 25 mg tablet extended release 24 hr
25 mg PO BID Qty: 180 0RF
No Action
amantadine HCl 100 MG capsule
100 mg PO BID
amlodipine 2.5 mg Tablet
2.5 mg PO DAILY
tizanidine 2 MG tablet
4 mg PO QID
Eliquis 5 MG tablet
5 mg PO BID
atorvastatin 10 MG tablet
10 mg PO DAILY
omeprazole 40 MG capsule,delayed release(DR/EC)
40 mg PO DAILY
metoprolol succinate 25 MG tablet extended release 24 hr
25 mg PO BID
Trelegy Ellipta 100-62.5-25 mcg Blister With Device
1 inh INHALATION DAILY PRN (Reason: shortness of breath )
albuterol sulfate 90 mcg/actuation Hfa Aerosol Inhaler
2 puff INHALATION PRN PRN (Reason: SOB)
multivitamin Tablet
1 tab PO DAILY
Referrals:
Silviano Aivla MD [Active] - Keep scheduled appt
Nanette He MD [Family Provider] - Call in 1-3 days for appt
Dada Moscoso MD [Active] - Call in 1-3 days for appt
Activity Restrictions/Additional Instructions:
Stop the aspirin. You should not take aspirin nor NSAIDs such as Motrin, Advil, Aleve, ibuprofen while taking Eliquis. You can however take Tylenol/acetaminophen, 4 times daily as needed for pain. Acetaminophen is safe while taking Eliquis.
I have refilled your metoprolol succinate to be taken twice daily, I have also refilled your amlodipine, atorvastatin, omeprazole.
Follow-up promptly with your primary care physician for recheck and take all of your medications with you for accurate medication reconciliation.
Interventions
Interventions:
*Risk Screen - Suicide Last Done: 07/02/24 19:59
*General Assessment Last Done: 07/02/24 19:59
*Neglect/Abuse Screening Last Done: 07/02/24 19:59
*ED- Fall Risk Assessment Last Done: 07/02/24 21:51
*ED COVID-19 Vaccine History Last Done: 07/02/24 21:51
ED- Cardiac Assessment Last Done: 07/02/24 21:51
ED- Neurological Assessment Last Done: 07/02/24 21:51
ED- Pulmonary Assessment Last Done: 07/02/24 21:51
Discharge Date and Time
Print Language: GABONESE
[2024-07-02] MEDS: TYLENOL 1000 MG PO (23:32)
== END 2024-07-03 00:56 | disposition home or self-care (01) ==
LOC: EMR 19:58
PROVIDERS: Emergency Medicine; EMERGENCY PHYSICIAN Emergency Medicine; FAMILY PHYSICIAN Emergency Medicine
DX: M75.91 Shoulder lesion, unspecified, right shoulder (principal); E78.00 Pure hypercholesterolemia, unspecified; I12.9 Hypertensive chronic kidney disease with stage 1 through stage 4 chronic kidney disease, or unspecified chronic kidney disease; N18.9 Chronic kidney disease, unspecified; I48.91 Unspecified atrial fibrillation; J44.9 Chronic obstructive pulmonary disease, unspecified; M19.011 Primary osteoarthritis, right shoulder; Z87.11 Personal history of peptic ulcer disease; Z85.3 Personal history of malignant neoplasm of breast; Z87.19 Personal history of other diseases of the digestive system; Z87.891 Personal history of nicotine dependence; Z79.01 Long term (current) use of anticoagulants
CPT/HCPCS: 99285; 73030; 80053; 83880; 84484; 85025; 93005

== ENCOUNTER 2024-08-06 18:51 | Emergency (ER) | payer MEDICARE, SELFPAY ==
[2024-08-06 18:55] VITALS: BP 146/105
--- NOTE | 2024-08-06 19:59 | ED.GENMED ---
History of Present Illness
General
Chief Complaint: Oral/Mouth Problem
Time Seen by Provider: 08/06/24 19:50
History of Present Illness
History of Present Illness:
78-year-old female presents to the emergency department for evaluation of bleeding from the mouth that began while eating dinner. Bleeding is since resolved. Denies any pain
Past History
Past History
ED Past Medical History: Arrthythmia (Atrial fibrillation), Cancer (Breast, 'mass found near ureter'), COPD, GERD (PUD, gastritis), HTN, Hypercholesterolemia and Other (MS, CKD)
ED Past Surgical History: Orthopedic and Other
Patient has exhibited threatening behavior?: No
Social History
Tobacco: Former smoker (Breast cancer diagnosed in February 2015 treated with lumpectomy and radiation)
Alcohol: None
Drug: None
Personal: Single
Living: alone
Employment: Other (customer care associate)
Family History
Family History: Other (n/c)
Review of Systems
Review of Systems
Allergies reviewed?: Yes
All Other Systems: ROS reviewed and negative except as documented in HPI and ROS
Phy Exam
Physical Exam
Physical Exam:
GEN: Well appearing, NAD, WDWN
HEENT: Oral mucosa moist, no scleral icterus. Blood blister noted to the left lateral tongue with no active bleeding, no other potential sites for oropharyngeal bleeding noted
Cardiac: Regular rate
Lung: No respiratory distress, no tachypnea
MSK: No gross deformity or injuries
Skin: Good color, no pallor or jaundice, no rashes
Neuro: AO x3, moves all extremities freely
Psych: Calm, cooperative
Course
Vital Signs
Initial and Last Documented VS:
Initial Vital Signs
Pulse Resp BP Pulse Ox
88 20 146/105 98
08/06/24 18:55 08/06/24 18:55 08/06/24 18:55 08/06/24 18:55
Last Documented Vital Signs
Pulse Resp BP Pulse Ox
88 20 146/105 98
08/06/24 18:55 08/06/24 18:55 08/06/24 18:55 08/06/24 18:55
MDM/Problems Addressed
MDM/Problems Addressed:
No active bleeding noted on exam in the ED, discussed supportive care should bleeding recur
*Pulse Oximetry
Patient hypoxic: no (98% on room air)
*Critical Care Note
Total Time (30-74mins, 75-104mins- exclusive of procedures): Not Applicable
ED Attending Note
-
Portions of this chart may have been created with voice recognition software.� Occasional wrong word or��sound alike� substitutions may have occurred due to the inherent limitations of voice recognition software.
Discharge Plan
Departure
Patient Disposition: Home (Routine Discharge)
Date of Disposition: 08/06/24
Time of Disposition: 20:18
Patient with high blood pressure during this ER visit?: No
Discharge Problem:
Hemorrhage of tongue
Prescriptions:
No Action
amantadine HCl 100 MG capsule
100 mg PO BID
amlodipine 2.5 mg Tablet
2.5 mg PO DAILY
tizanidine 2 MG tablet
4 mg PO QID
Eliquis 5 MG tablet
5 mg PO BID
atorvastatin 10 MG tablet
10 mg PO DAILY
omeprazole 40 MG capsule,delayed release(DR/EC)
40 mg PO DAILY
metoprolol succinate 25 MG tablet extended release 24 hr
25 mg PO BID
Trelegy Ellipta 100-62.5-25 mcg Blister With Device
1 inh INHALATION DAILY PRN (Reason: shortness of breath )
albuterol sulfate 90 mcg/actuation Hfa Aerosol Inhaler
2 puff INHALATION PRN PRN (Reason: SOB)
multivitamin Tablet
1 tab PO DAILY
atorvastatin 10 mg tablet
10 mg PO HS Qty: 90 0RF
amlodipine 2.5 mg tablet
2.5 mg PO DAILY Qty: 90 0RF
omeprazole 40 mg capsule,delayed release(DR/EC)
40 mg PO DAILY Qty: 90 0RF
metoprolol succinate 25 mg tablet extended release 24 hr
25 mg PO BID Qty: 180 0RF
Referrals:
UNKNOWN - PT DOES,NOT KNOW [Family Provider]
Activity Restrictions/Additional Instructions:
If bleeding restarts hold direct pressure for 20 minutes, if this does not control bleeding return to the ER for further evaluation
Interventions
Interventions:
*Risk Screen - Suicide Last Done: 08/06/24 18:55
*General Assessment Last Done: 08/06/24 18:55
*Neglect/Abuse Screening Last Done: 08/06/24 18:55
*ED- Fall Risk Assessment Last Done: 08/06/24 20:35
*ED COVID-19 Vaccine History Last Done: 08/06/24 20:35
*Nursing Disposition Last Done: 08/06/24 20:35
Discharge Date and Time
Discharge Date/Time: 08/06/24 20:35
Print Language: TAJIK
== END 2024-08-06 20:35 | disposition home or self-care (01) ==
LOC: EMR 18:51
PROVIDERS: EMERGENCY PHYSICIAN Student in an Organized Health Care Education/Training Program
DX: K14.8 Other diseases of tongue (principal); E78.00 Pure hypercholesterolemia, unspecified; I12.9 Hypertensive chronic kidney disease with stage 1 through stage 4 chronic kidney disease, or unspecified chronic kidney disease; N18.9 Chronic kidney disease, unspecified; I48.91 Unspecified atrial fibrillation; J44.9 Chronic obstructive pulmonary disease, unspecified; Z87.11 Personal history of peptic ulcer disease; Z87.891 Personal history of nicotine dependence
CPT/HCPCS: 99282

== ENCOUNTER 2024-08-08 03:36 | Emergency (ER) | payer MEDICARE, SELFPAY ==
[2024-08-08 03:38] VITALS: BP 163/89
--- NOTE | 2024-08-08 04:13 | ED.GENMED ---
History of Present Illness
General
Chief Complaint: Oral/Mouth Problem
Source: patient
Exam Limitations: none
Time Seen by Provider: 08/08/24 03:43
Nursing documentation reviewed up to this point in time: agreed with
History of Present Illness
History of Present Illness:
78-year-old female past medical history of A-fib currently on Eliquis, COPD presenting to the emergency department today with concerns of bleeding from the left side of her tongue intermittent over the past 3 days was here earlier today but
spontaneous resolved. Recurrence of the night tonight. Denies any lightheadedness chest pain shortness of breath or additional concerns. Denies any specific trauma to the area that she is aware of.
Past History
Past History
ED Past Medical History: Arrthythmia (Atrial fibrillation), Cancer (Breast, 'mass found near ureter'), COPD, GERD (PUD, gastritis), HTN, Hypercholesterolemia and Other (MS, CKD)
ED Past Surgical History: Orthopedic and Other
Patient has exhibited threatening behavior?: No
Social History
Tobacco: Former smoker (Breast cancer diagnosed in February 2015 treated with lumpectomy and radiation)
Alcohol: None
Drug: None
Personal: Single
Living: alone
Employment: Other (care attendant)
Family History
Family History: Other (n/c)
Review of Systems
Review of Systems
Allergies reviewed?: Yes
All Other Systems: ROS reviewed and negative except as documented in HPI and ROS
Phy Exam
Physical Exam
Physical Exam:
GENERAL: Alert , in no apparent distress
EYE: pupils equal and reactive
NECK: Supple, no significant adenopathy.
ENT: Left lateral tongue slow oozing bleeding. Otherwise normal exam, o/p clr, mmm.
CARDIAC: Regular rate and rhythm .
LUNGS: Clear breath sounds bilaterally, no acute respiratory distress, no wheezes/rales/rhonchi
ABDOMEN: Soft, without focal tenderness, no r/g, no cvat
NEUROLOGICAL: Alert and oriented, no focal neuro deficits
SKIN: Warm and dry, skin intact.
MUSCULOSKELETAL: No edema, well perfused.
PSYCH: Normal and appropriate interaction.
Course
Vital Signs
Initial and Last Documented VS:
Initial Vital Signs
Temp Pulse Resp BP Pulse Ox
98.4 F 71 16 163/89 98
08/08/24 03:38 08/08/24 03:38 08/08/24 03:38 08/08/24 03:38 08/08/24 03:38
Last Documented Vital Signs
Temp Pulse Resp BP Pulse Ox
98.4 F 67 16 156/77 96
08/08/24 03:38 08/08/24 04:30 08/08/24 03:38 08/08/24 04:30 08/08/24 04:30
Procedures
Laceration Closure
Left lateral tongue:
Status of Wound: clean
Size of Wound in cm: 0.5
Description of Wound Edges: sharp
Preparation: cleaned with saline
Anesthesia: 1% Lidocaine with epi
Revision/Debridement: routine- no revision
Wound exploration: explored to base- no FB
Type of Closure: single layer closure
Skin Closure Material: 5-0 vicryl
Number of sutures: 1
Additional information:
Single [id number] stitch
MDM/Problems Addressed
MDM/Problems Addressed:
78-year-old female presenting to the emergency department today with concerns of bleeding from the left lateral aspect of her tongue. Denies any specific injury. Has had some intermittent bleeding from the area for the past few days. Bleeding
recurred in the middle of the night tonight which prompted her to come to the ER. Here she had some bleeding from the left tongue. [id number] stitch was placed after numbing with complete resolution of bleeding. Patient monitored here for 1
hour without any recurrence of bleeding stable for discharge return precautions given.
*Critical Care Note
Total Time (30-74mins, 75-104mins- exclusive of procedures): Not Applicable
ED Attending Note
-
Portions of this chart may have been created with voice recognition software.� Occasional wrong word or��sound alike� substitutions may have occurred due to the inherent limitations of voice recognition software.
Discharge Plan
Departure
Patient Disposition: Home (Routine Discharge)
Date of Disposition: 08/08/24
Time of Disposition: 05:04
Patient with high blood pressure during this ER visit?: No
Condition: Good
Covid-19: Not Applicable
Discharge Problem:
Hemorrhage of tongue
Prescriptions:
No Action
amantadine HCl 100 MG capsule
100 mg PO BID
tizanidine 2 MG tablet
4 mg PO QID
Eliquis 5 MG tablet
5 mg PO BID
atorvastatin 10 MG tablet
10 mg PO DAILY
omeprazole 40 MG capsule,delayed release(DR/EC)
40 mg PO DAILY
metoprolol succinate 25 MG tablet extended release 24 hr
25 mg PO BID
Trelegy Ellipta 100-62.5-25 mcg Blister With Device
1 inh INHALATION DAILY PRN (Reason: shortness of breath )
albuterol sulfate 90 mcg/actuation Hfa Aerosol Inhaler
2 puff INHALATION PRN PRN (Reason: SOB)
multivitamin Tablet
1 tab PO DAILY
amlodipine 2.5 mg tablet
2.5 mg PO DAILY Qty: 90 0RF
omeprazole magnesium [Prilosec OTC] 20 mg Tablet,Delayed Release (Dr/Ec)
20 mg PO DAILY PRN (Reason: indigestion)
Referrals:
Nanette He MD [Family Provider, Internal Medicine]
Molina Garrett MD [Active, ENT]
Activity Restrictions/Additional Instructions:
You came to the emergency department today with concerns of bleeding from your tongue. This was controlled here with a dissolving stitch. Please follow-up for any persisting symptoms. Return for any worsening, new or concerning symptoms.
Interventions
Interventions:
*Risk Screen - Suicide Last Done: 08/08/24 03:38
*General Assessment Last Done: 08/08/24 03:38
*Neglect/Abuse Screening Last Done: 08/08/24 03:38
*ED- Fall Risk Assessment Last Done: 08/08/24 03:38
*ED COVID-19 Vaccine History Last Done: 08/08/24 03:38
Discharge Date and Time
Print Language: SERBIAN
[2024-08-08 04:30] VITALS: BP 156/77
== END 2024-08-08 05:10 | disposition home or self-care (01) ==
LOC: EMR 03:36
PROVIDERS: EMERGENCY PHYSICIAN Emergency Medicine; FAMILY PHYSICIAN Emergency Medicine
DX: K14.8 Other diseases of tongue (principal); I12.9 Hypertensive chronic kidney disease with stage 1 through stage 4 chronic kidney disease, or unspecified chronic kidney disease; N18.9 Chronic kidney disease, unspecified; I48.91 Unspecified atrial fibrillation; E78.00 Pure hypercholesterolemia, unspecified; J44.9 Chronic obstructive pulmonary disease, unspecified; Z79.01 Long term (current) use of anticoagulants; Z85.3 Personal history of malignant neoplasm of breast; Z87.11 Personal history of peptic ulcer disease; Z87.891 Personal history of nicotine dependence
CPT/HCPCS: 99282

== ENCOUNTER → 2024-12-19 15:08 | Outpatient (REF) | payer MEDICARE, SELFPAY | LOC: RAD 15:08 | PROVIDERS: ATTENDING PHYSICIAN Internal Medicine Critical Care Medicine; FAMILY PHYSICIAN Emergency Medicine | DX: R91.1 Solitary pulmonary nodule (principal) | CPT/HCPCS: 71250 ==